=== PATIENT | male | born 1955 | race Caucasian/White ===

== ENCOUNTER 2021-03-16 06:26 | Emergency (ER) | payer SELFPAY ==
--- OUTSIDE RECORDS SUMMARY | 2021-03-16 06:28 | XMS REPORT | Continuity of Care Document ---
:1955 Author Organization [facility] t Address [address] [place] [address] Care Team Providers Name Role Phone SAMUEL Attending Clinician Unavailable Problems Condition Condition Condition Status Onset Resolution Last Treating Co mments Source Name Details Category Date Date Treatment Clinician Date Essential Essential Problem Active Uni vers hypertensi hypertensi HL7.CCDAR2 ity of on on [place] [facility] CAD CAD Problem Active Univers (coronary (coronary HL7.CCDAR2 ity of artery artery [place] disease) disease) Physic i ans Hyperlipid Hyperlipid Problem Active U nivers emia, emia, HL7.CCDAR2 it[place] hyperlipid hyperlipid an s emia type emia type History of History of Problem Resolve Univers Heart Heart HL7.CCDAR2 d ity of disease disease [place] [facility] Allergies, Adverse Reactions, Alerts This patient has no known allergies or adverse reactions. Social History Smoking Status Start Date Stop Date Source Current every day smoker [facility] [place] [facility] Medications Ordered Filled Start Stop Current Ordering Indication Dosage Frequency Signature Comments Components Source Medication Medication Date Date Medication? Clinician (SIG) Name Name Simvastatin Simvastatin 2017-07 Yes ONOFRE LEO TAKE 1 Univers 20 MG Oral 20 MG Oral 1-07 D.O. TABLET BY ity of Tablet Tablet 00:00: MOUTH [place] 00 DAILY Physici ans Aspirin 81 Aspirin 81 Yes Uni vers MG TABS MG TABS ity of [place] [facility] ans Carvedilol Carvedilol Yes ONOFRE LEO Q0.5D TAKE 1 Univers 12.5 MG 12.5 MG D.O. TABLET ity of Oral Tablet Oral Tablet TWICE [place] DAILY WITH Physici MEALS. ans Plavix 75 Plavix 75 Yes TAKE 1 Uni vers MG Oral MG Oral TABLET BY ity of Tablet Tablet MOUTH [place] DAILY Physici ans Isosorbide Isosorbide Yes TAKE 1 U nivers Mononitrate Mononitrate TABLET BY ity of ER 60 MG ER 60 MG MOUTH [place] Oral Tablet Oral Tablet EVERY DAY Physici Extended Extended ans Release 24 Release 24 Hour Hour Lisinopril Lisinopril Yes 2 QD TAKE 2 U nivers 20 MG Oral 20 MG Oral TABLET i ty of Tablet Tablet DAILY [place] [facility] ans Nitroglycer Nitroglycer Yes U nivers in 0.4 MG in 0.4 MG ity o f Sublingual Sublingual [place] as Tablet Tablet Physici Sublingual Sublingual ans Vital Signs Vital Name Observation Time Observation Value Comments Source BP Systolic 2018-05-18 168 mm[Hg] Location: [facility] 15:46:00 Position: [place] [facility] S[facility] BP Diastolic 2018-05-18 79 mm[Hg] Location: [facility] 15:46:00 Position: [place] [facility] Weight 2018-05-18 137.125 [lb_av] [facility] o f 15:46:00 [place] [facility] Heart Rate 2018-05-18 64 /min [facility] 15:46:00 [place] [facility] Respiration Rate 2018-05-18 16 /min [facility] 15:46:00 [place] [facility] Procedures This patient has no known procedures. Encounters Start End Encounter Admission Attending Care Care Encounter Source Date/Time Date/Time Type Type Clinicians Facility Department ID 2019-10-02 Outpatient [facility] [id number] 09:24:10 2019-07-20 Inpatient [facility] [id number] 21:22:00 2018-05-18 2018-05-18 XIMENA Agrawal [id number] [facility] 15:00:00 15:00:00 mandy; EDELMIRA BAKER [facility], M.D. Specialty [facility] Results This patient has no known results.
--- NOTE | 2021-03-16 09:20 | RAD REPORT ---
EXAM DESCRIPTION: US - Lower Extremity Arterial Bilat - 03/16/2021 8:49 am CLINICAL HISTORY: Leg pain COMPARISON: None FINDINGS: Right: Occlusion of the right mid superficial femoral artery. The distal SFA is stenotic a s well. All of the vessels in the left lower extremity demonstrate monophasic flow. Hard calcified pl aque noted throughout. Left: Occlusion of the proximal and mid SFA. There is monophasic flow throughout the left lower extre mity. Calcified plaque is present throughout. IMPRESSION: Short-segment right mid SFA occlusion and distal SFA stenosis. Monophasic flow throughou t the right lower extremity vessels. . Long segment occlusion of the left proximal and mid SFA. Monophasic flow throughout the left lower ex tremity vessels.
--- NOTE | 2021-03-16 15:31 | EDPHYS ---
Physician Documentation [facility] Name: Jeffy William Age: 65 yrs Sex: Male : 1955 Arrival Date: 03/16/2021 Time: 06:30 Bed 2 Private MD: ED Physician Moreno Basilio HPI: 03/16 07:40 This 65 yrs old Male presents to ER via Ambulatory with complaints of Toe sp3 Pain, Toe Swelling. 07:40 65-year-old male with a history of hypertension, hyperlipidemia, and lower extremity sp3 arterial bypass surgery over 3 years ago who now presents with left first and second digit toe pain for approximately 1 month. Patient states that the pain comes and goes and his toes feel cold and occasionally turn purple. Subsequent to cleaning his toenails, he states that his pain levels have improved and he think it may have been infected in the past. Patient's ability to walk has not changed. Patient is not a diabetic. Patient reports no injury, new or old paresthesias, weakness, change in proprioception, or any other neurological manifestations. Patient's daughter is new to the social situation and is now trying to take over patient's care. He has not had a primary care physician for over 1 year and therefore has not been taking his medications which include aspirin and Plavix. Patient reports that he stopped taking his aspirin because he "bleeds too much" when he takes it like when he bumps his elbow or has a bruise. Patient reports no GI bleeding, melena, dark stools, dee dee blood, lightheadedness, near-syncope, syncope, chest pain, shortness of breath, headache, fever, URI symptoms, or any other review of systems at this time. Patient states that he is getting his Medicaid sorted out and plans on getting back with his primary care physician.. Historical: - Allergies: 07:09 No Known Allergies; aa5 - PMHx: 07:09 Hypertensive disorder; Hypercholesterolemia; Myocardial infarction; aa5 - PSHx: 07:09 "tube from heart to help circulation to legs"; aa5 - Immunization history:: Client reports having NOT received the Covid vaccine. - Social history:: Smoking status: Patient reports the use of cigarette tobacco products, smokes one-half pack cigarettes per day. ROS: 07:43 Constitutional: Negative for fever, chills, and weight loss, Respiratory: Negative for sp3 shortness of breath, cough, wheezing, and pleuritic chest pain, Abdomen/GI: Negative for abdominal pain, nausea, vomiting, diarrhea, and constipation, Back: Negative for injury and pain, Skin: Negative for injury, rash, and discoloration, Neuro: Negative for headache, weakness, numbness, tingling, and seizure. 08:05 All other systems are negative. sp3 Exam: 07:43 Constitutional: This is a well developed, well nourished patient who is awake, alert, sp3 and in no acute distress. Head/Face: Normocephalic, atraumatic. Eyes: Pupils equal round and reactive to light, extra-ocular motions intact. Lids and lashes normal. Conjunctiva and sclera are non-icteric and not injected. Cornea within normal limits. Periorbital areas with no swelling, redness, or edema. ENT: Nares patent. No nasal discharge, no septal abnormalities noted. External auditory canals are clear. Oropharynx with no redness, swelling, or masses, exudates, or evidence of obstruction, uvula midline. Mucous membranes moist. Neck: Trachea midline, no thyromegaly or masses palpated, and no cervical lymphadenopathy. Supple, full range of motion without nuchal rigidity, or vertebral point tenderness. No Meningismus. Chest/axilla: Normal chest wall appearance and motion. Nontender with no deformity. No lesions are appreciated. Respiratory: Lungs have equal breath sounds bilaterally, clear to auscultation and percussion. No rales, rhonchi or wheezes noted. No increased work of breathing, no retractions or nasal flaring. Abdomen/GI: Soft, non-tender, with normal bowel sounds. No distension or tympany. No guarding or rebound. No evidence of tenderness throughout. Back: No spinal tenderness. No costovertebral tenderness. Full range of motion. Skin: Warm, dry with normal turgor. Normal color with no rashes, no lesions, and no evidence of cellulitis. Neuro: Awake and alert, GCS 15, oriented to person, place, time, and situation. Cranial nerves II-XII grossly intact. Motor strength 5/5 in all extremities. Sensory grossly intact. Cerebellar exam normal. Normal gait. Psych: Awake, alert, with orientation to person, place and time. Behavior, mood, and affect are within normal limits. 07:43 Cardiovascular: Exam negative for acute changes, bradycardia, edema, JVD, pulse deficit, tachycardia, Heart sounds: Patient has cold extremities bilaterally but does have a faint dorsalis pedis pulse. Capillary refill is present bilaterally, although nail hygiene is not optimal. Patient reports normal sensation bilaterally.. MDM: 07:20 Patient medically screened. sp3 07:44 Data reviewed: vital signs, nurses notes, radiologic studies. ED course: At this time, sp3 patient's symptoms and conditions are likely chronic in nature. There is no acute emergency at this time. We will obtain ultrasounds arterial bilateral lower extremities and disposition from there. At this time I have clinically ruled out acute coronary syndrome, thoracic aortic aneurysm, AAA, PE, or any other critical emergency at this time pending ultrasound results.. 12:36 ED course: Had a right SFA occlusion but patient could not tolerate being in the ED due sp3 to his personal time constraints, and so left without telling any staff. Multiple attempts were made to locate patient but patient was not found. Prior to ultrasound results, patient was told that he likely has vascular compromise arterially based on exam. Patient unfortunately left.. 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 There is no acute emergency at this time. We will obtain ultrasounds arterial bilateral lower extremities and discharge patient from there on Bactrim for 3 days for possible nailbed infection. At this time I have clinically ruled out acute coronary syndrome, thoracic aortic aneurysm, AAA, PE, or any other critical emergency at this time.. sp3
--- NOTE | 2021-03-16 15:31 | ER ---
Nurse's Notes 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 aa5 Coronavirus screen: At this time, the client does not indicate any symptoms associated with coronavirus-19. Ebola Screen: Patient negative for fever greater than or equal to 101.5 degrees Fahrenheit, and additional compatible Ebola Virus Disease symptoms. Initial Sepsis Screen: Does the patient meet any 2 criteria? No. Patient's initial sepsis screen is negative. Does the patient have a suspected source of infection? No. Patient's initial sepsis screen is negative. Risk Assessment: Do you want to hurt yourself or someone else? Patient reports no desire to harm self or others. Onset of symptoms was February 2021. 07:08 Method Of Arrival: Ambulatory aa5 07:08 Acuity: GINA 3 aa5 Historical: - Allergies: 07:09 No Known Allergies; aa5 - PMHx: 07:09 Hypertensive disorder; Hypercholesterolemia; Myocardial infarction; aa5 - PSHx: 07:09 "tube from heart to help circulation to legs"; aa5 - Immunization history:: Client reports having NOT received the Covid vaccine. - Social history:: Smoking status: Patient reports the use of cigarette tobacco products, smokes one-half pack cigarettes per day. Assessment: 07:45 General: Appears in no apparent distress. Behavior is calm, cooperative. Neuro: Level iw of Consciousness is awake, alert, obeys commands. ED Course: 06:30 Patient arrived in ED. bp1 07:08 Arm band placed on. aa5 07:09 Triage completed. aa5 07:20 Moreno Basilio MD is Attending Physician. sp3 07:45 Nikkie Zarate, RN is Primary Nurse. iw 15:42 Lower Extremity Arterial Bilat US In Process Unspecified. EDMS Administered Medications: No medications were administered Outcome: 12:50 Patient left the ED. iw Signatures: Dispatcher [employer] EDMS Nikkie Zarate, RN RN iw Maeve Roper, RN RN aa5 Yolie Hancock Setul, MD MD sp3
== END 2021-03-16 12:50 | disposition left against medical advice (07) ==
LOC: ER 06:26
DX: T82.31 Breakdown (mechanical) of other vascular grafts (principal); I10 Essential (primary) hypertension; I25.2 Old myocardial infarction; F17.210 Nicotine dependence, cigarettes, uncomplicated
CPT/HCPCS: 93925; 99282

== ENCOUNTER 2021-04-14 23:45 | Emergency (ER) | payer SELFPAY ==
[2021-04-15 00:37] LABS: Absolute Lymphocytes (CBC) 1.1 K/uL (0.7-4.9); Basophils % 0.6 % (0-1.3); Lymphocytes % 13.3 % (15.3-44.8); MPV 7.6 fL (7.6-11.3); RBC Red Blood Cell Count 4.25 M/uL (4.33-5.43)
[2021-04-15 00:51] LABS: ALT/SGPT 93 U/L (12-78); AST/SGOT 73 U/L (15-37); Albumin 2.9 g/dL (3.4-5.0); Alkaline Phosphatase 122 U/L (45-117); BUN Blood Urea Nitrogen 23 mg/dL (7-18); Bicarbonate 26 mmol/L (21-32); Bilirubin Direct 0.1 mg/dL (0-0.2); Bilirubin Total 0.3 mg/dL (0.2-1.0); CKMB Creatine Kinase MB 2.5 ng/mL (1.0-3.6); Creatine Phosphokinase 75 U/L (39-308); Glucose Level 120 mg/dL (74-106); Lipase 108 U/L (73-393); Magnesium 2.1 mg/dL (1.8-2.4); NT PRO-BNP 1144 pg/mL (<125); Potassium 4.1 mmol/L (3.5-5.1); Protein, Total 7.5 g/dL (6.4-8.2); Sodium Level 136 mmol/L (136-145); Troponin (Emerg Dept Use Only) < 0.02 ng/mL (0.0-0.045)
[2021-04-15] MEDS ORDERED: LEVALBUTEROL 1.25 MG/3 ML NEB ONE (01:12)
[2021-04-15] MEDS ORDERED: IPRATROPIUM BROM 0.5MG/2.5ML ONE (01:12)
[2021-04-15] MEDS ORDERED: levoFLOXacin 500 MG TAB ONE (01:22)
[2021-04-15] MEDS ORDERED: METHYLPREDNISOLONE 125 MG INJ ONE (01:22)
--- NOTE | 2021-04-15 02:26 | EDPHYS ---
Physician Documentation [facility] Name: Jeffy William Age: 65 yrs Sex: Male : 1955 Arrival Date: 04/14/2021 Time: 23:49 Bed 30 Private MD: ED Physician Mohsen Evans HPI: 04/15 00:37 This 65 yrs old Male presents to ER via Ambulatory with complaints of pamela Shortness Of Breath, Anxiety, Doesn't Feel Right, TOES TURNING PURPLE. 00:37 The patient has shortness of breath at rest, with light activity. Onset: The pamela symptoms/episode began/occurred 3 day(s) ago. Duration: The symptoms are continuous, and are steadily getting worse. The patient's shortness of breath has no apparent modifying factors. Associated signs and symptoms: Pertinent positives: non-productive cough. Severity of symptoms: At their worst the symptoms were moderate in the emergency department the symptoms are unchanged. The patient has experienced similar episodes in the past, several times. Historical: - Allergies: 04/14 23:56 No Known Allergies; wg - PMHx: 23:56 Hypercholesterolemia; Hypertensive disorder; Myocardial infarction; Peripheral vascular wg disease; - Immunization history:: Adult Immunizations up to date. - Social history:: Smoking status: Patient reports the use of cigarette tobacco products, smokes one pack cigarettes per day. Patient uses alcohol, but reports only rare drinking. Patient/guardian denies using street drugs, IV drugs. - Family history:: not pertinent. ROS: 04/15 00:37 Constitutional: Negative for fever, chills, and weight loss, Eyes: Negative for injury, pamela pain, redness, and discharge, ENT: Negative for injury, pain, and discharge, Neck: Negative for injury, pain, and swelling, Cardiovascular: Negative for chest pain, palpitations, and edema, Abdomen/GI: Negative for abdominal pain, nausea, vomiting, diarrhea, and constipation, Back: Negative for injury and pain, : Negative for injury, bleeding, discharge, and swelling, MS/Extremity: Negative for injury and deformity, Skin: Negative for injury, rash, and discoloration, Neuro: Negative for headache, weakness, numbness, tingling, and seizure. Respiratory: Positive for cough, shortness of breath, at rest. Exam: 00:37 Constitutional: This is a well developed, well nourished patient who is awake, alert, pamela and in no acute distress. Head/Face: Normocephalic, atraumatic. Eyes: Pupils equal round and reactive to light, extra-ocular motions intact. Lids and lashes normal. Conjunctiva and sclera are non-icteric and not injected. Cornea within normal limits. Periorbital areas with no swelling, redness, or edema. ENT: Nares patent. No nasal discharge, no septal abnormalities noted. Tympanic membranes are normal and external auditory canals are clear. Oropharynx with no redness, swelling, or masses, exudates, or evidence of obstruction, uvula midline. Mucous membranes moist. Neck: Trachea midline, no thyromegaly or masses palpated, and no cervical lymphadenopathy. Supple, full range of motion without nuchal rigidity, or vertebral point tenderness. No Meningismus. Chest/axilla: Normal chest wall appearance and motion. Nontender with no deformity. No lesions are appreciated. Cardiovascular: Regular rate and rhythm with a normal S1 and S2. No gallops, murmurs, or rubs. Normal PMI, no JVD. No pulse deficits. Abdomen/GI: Soft, non-tender, with normal bowel sounds. No distension or tympany. No guarding or rebound. No evidence of tenderness throughout. Back: No spinal tenderness. No costovertebral tenderness. Full range of motion. Male : Normal genitalia with no discharge or lesions. Skin: Warm, dry with normal turgor. Normal color with no rashes, no lesions, and no evidence of cellulitis. MS/ Extremity: Pulses equal, no cyanosis. Neurovascular intact. Full, normal range of motion. Neuro: Awake and alert, GCS 15, oriented to person, place, time, and situation. Cranial nerves II-XII grossly intact. Motor strength 5/5 in all extremities. Sensory grossly intact. Cerebellar exam normal. Normal gait. Psych: Awake, alert, with orientation to person, place and time. Behavior, mood, and affect are within normal limits. 00:37 Respiratory: mild respiratory distress is noted, Respirations: no acute changes, Breath sounds: bronchial sounds, decreased breath sounds, that are mild, rhonchi, that are mild, are scattered, Respiratory rate: 17 00:43 ECG was reviewed by the Attending Physician. pamela 00:43 Musculoskeletal/extremity: DVT Exam: No signs of deep vein thrombosis. no pain, no swelling, no tenderness, negative Homans' sign noted on exam, no appreciated bluish discoloration, no erythema, no increased warmth. Vital Signs: 04/14 23:52 BP 155 / 106; Pulse 108; Resp 20; Temp 98.7; Pulse Ox 99% on R/A; Weight 58.97 kg; wg Height 5 ft. 10 in. (177.80 cm); Pain 0/10; 04/15 00:26 BP 156 / 96 RA Sitting (auto/reg); Pulse 95; Resp 17 S; Pulse Ox 97% on R/A; Pain 0/10; sj1 02:19 BP 121 / 70 RA Sitting (auto/reg); Pulse 89; Resp 19 S; Pulse Ox 93% on R/A; Pain 0/10; sj1 05:07 BP 126 / 90 RA Sitting (auto/reg); Pulse 153; Resp 20; Temp 98.8(TE); Pulse Ox 98% on sj1 R/A; Pain 0/10; 05:35 BP 142 / 82 LA (auto/reg); Pulse 82; Resp 20 S; Pulse Ox 94% on R/A; Pain 0/10; sj1 05:54 BP 132 / 86; Pulse 89; Resp 20 S; Temp 98.8(TE); Pulse Ox 98% on R/A; Pain 0/10; sj1 04/14 23:52 Body Mass Index 18.65 (58.97 kg, 177.80 cm) wg Max Coma Score: 03:45 Eye Response: spontaneous(4). Verbal Response: oriented(5). Motor Response: obeys sj1 commands(6). Total: 15. MDM: 00:29 Patient medically screened. pamela 00:40 Differential diagnosis: Anxiety Reaction asthma, Bronchitis CHF exacerbation, Chronic pamela Obstructive Pulmonary Disease pneumonia, pulmonary edema, reactive airway disease. Antibiotic administration: Not indicated. The patient's Wells Deep Vein Thrombosis Score was calculated as follows: Total Score: 0-2 Pts- Low Risk. The patient's pulmonary embolism risk score was calculated as follows: Total Score: 0-2 points. This patient was found to be at low risk for a pulmonary embolism by using the Well's assessment criteria. Immunization status: Influenza vaccine: Data reviewed: vital signs, nurses notes, lab test result(s), EKG, radiologic studies, plain films. Data interpreted: periodicals clerk: rate is 95 beats/min, rhythm is regular, Pulse oximetry: on room air is 97 %. Test interpretation: by ED physician or midlevel provider: ECG, plain radiologic studies. Counseling: I had a detailed discussion with the patient and/or guardian regarding: the historical points, exam findings, and any diagnostic results supporting the discharge/admit diagnosis, the presence of at least one elevated blood pressure reading (>120/80) during this emergency department visit, lab results, radiology results. 04/14 23:59 Order name: BMP wg 04/14 23:59 Order name: CBC with Diff wg 04/14 23:59 Order name: CPK wg 04/14 23:59 Order name: Ckmb; Complete Time: 01:32 wg 04/14 23:59 Order name: D-Dimer; Complete Time: 00:48 wg 04/14 23:59 Order name: Hepatic Function; Complete Time: 01:32 wg 04/14 23:59 Order name: Lipase; Complete Time: 01:32 wg 04/14 23:59 Order name: Magnesium; Complete Time: 01:32 wg 04/14 23:59 Order name: NT PRO-BNP; Complete Time: 01:32 wg 04/14 23:59 Order name: PT-INR; Complete Time: 00:48 wg 04/14 23:59 Order name: Ptt, Activated; Complete Time: 00:48 wg 04/14 23:59 Order name: Troponin (emerg Dept Use Only); Complete Time: 01:32 wg 04/15 00:00 Order name: Basic Metabolic Panel; Complete Time: 01:32 EDMS 04/15 00:00 Order name: CBC with Automated Diff; Complete Time: 01:32 EDMS 04/15 00:00 Order name: Creatine Phosphokinase; Complete Time: 01:32 EDMS 04/15 00:36 Order name: XRAY Chest (1 view) pamela 04/15 00:49 Order name: CT Chest For PE Angio pamela 04/15 01:03 Order name: Extrem Venous W Compression Ishmael US em 04/15 01:54 Order name: SARS-COV-2 RT PCR; Complete Time: 02:04 EDMS 04/14 23:59 Order name: EKG; Complete Time: 00:01 wg 04/14 23:59 Order name: Cardiac monitoring; Complete Time: 00:18 wg 04/14 23:59 Order name: EKG - Nurse/Tech; Complete Time: 00:18 wg 04/14 23:59 Order name: IV Saline Lock; Complete Time: 00:18 wg 04/14 23:59 Order name: Labs collected and sent; Complete Time: 00:18 wg 04/14 23:59 Order name: O2 Per Protocol; Complete Time: 00:18 wg 04/14 23:59 Order name: O2 Sat Monitoring; Complete Time: 00:18 wg EC:43 Rate is 94 beats/min. Rhythm is regular. QRS Douglas is Normal. MI interval is normal. QRS pamela interval is normal. QT interval is normal. No Q waves. T waves are Normal. No ST changes noted. Clinical impression: NSR w/ Non-specific ST/T Changes and No evidence of ischemia. Interpreted by me. Reviewed by me. Administered Medications: 00:49 Drug: Xopenex (levalbuterol) 2.5 mg Route: Inhalation; sj1 00:49 Drug: AtroVENT (ipratropium) Aerosol 0.5 mg Route: Inhalation; sj1 00:57 Drug: SOLU-Medrol (methylPrednisoLONE) 125 mg Route: IVP; Site: left antecubital; sj1 01:11 Follow up: Response: No adverse reaction sj1 00:57 Drug: LevOfloxacin 500 mg Route: PO; sj1 01:11 Follow up: Response: No adverse reaction sj1 02:37 Drug: Lasix (furosemide) 20 mg Route: IVP; Site: left antecubital; sj1 03:46 Follow up: Response: No adverse reaction sj1 05:44 Drug: Lopressor (metoprolol) 2.5 mg Route: IVP; Site: right forearm; sj1 05:50 Follow up: Response: No adverse reaction; Cardiac rhythm changed sj1 05:45 Drug: Heparin ([place]-Bolus No thrombolytic) - HEParin 60 units/kg {Co-Signature: cc4 sj1 (Sharonda Atkinson RN).} Route: IVP; Site: right forearm; 05:53 Follow up: Response: No adverse reaction sj1 05:45 Drug: Heparin ([place] Drip) 12 units/kg/hr - (HEParin 41350 units, D5W 500 ml) sj1 {Co-Signature: cc4 (Sharonda Atkinson RN).} Route: IV; Rate: calculated rate; Site: right forearm; 05:45 Drug: Lopressor (metoprolol TARTRATE) 50 mg Route: PO; sj1 05:50 Follow up: Response: No adverse reaction sj1 05:52 Not Given (Other Intervention Used): Lopressor (metoprolol) 5 mg IVP once; Hold for SBP sj1 <100 or HR <60. Disposition Summary: 04/15/21 02:43 Transfer Ordered Transfer Location: [facility] pamela Reason: Higher level of care pamela Condition: Fair(04/15/21 02:43) pamela Problem: new(04/15/21 02:43) pamela Symptoms: have improved(04/15/21 02:43) pamela Accepting Physician: TO Bakari MANNING(04/15/21 06:27) sj1 Diagnosis - Dyspnea - pulmonary and lymphatic metastases(04/15/21 02:43) pamela - Pericardial effusion (noninflammatory) - Large pamela - Pleural effusion in other conditions classified elsewhere pamela - Paroxysmal atrial fibrillation pamela Forms: - Medication Reconciliation Form pamela - SBAR form pamela Signatures: Dispatcher [employer] EDMS Mohsen Evans MD MD cha Gamba, Liam, RN wg Johnson, Sade, RN RN sj1 Sharonda Atkinson RN cc4 Corrections: (The following items were deleted from the chart) 00:51 00:37 CORONAVIRUS+ ordered. EDTX EDMS 02:40 02:25 Observation pamela pamela 02:40 02:25 Rigo Chou pamela pamela 02:40 02:25 Telemetry/MedSurg (observation) pamela pamela 02:40 02:25 Stable pamela pamela 02:40 02:25 new pamela pamela 02:40 02:25 have improved pamela pamela 02:40 02:25 Standard pamela pamela 02:40 02:25 pamela pamela 02:40 02:25 Dyspnea pamela pamela 02:40 02:25 Cardiomegaly pamela pamela 02:40 02:29 Systolic (congestive) heart failure pamela pamela 02:40 02:29 Essential (primary) hypertension pamela pamela 02:40 02:29 Tobacco abuse counseling pamela pamela 02:40 02:29 Tobacco use pamela pamela 03:17 02:43 TO [facility] pamela pamela 05:15 03:17 TO Bakari MANNING pamela pamela 06:27 05:15 TO CARDIO, Bakari pamela sj1
--- NOTE | 2021-04-15 02:26 | ER ---
Nurse's Notes [facility] Name: Jeffy William Age: 65 yrs Sex: Male : 1955 Arrival Date: 04/14/2021 Time: 23:49 Bed 30 Private MD: Diagnosis: Dyspnea-pulmonary and lymphatic metastases;Pericardial effusion (noninflammatory)-Large;Pleural effusion in other conditions classified elsewhere;Paroxysmal atrial fibrillation Presentation: 04/14 23:52 Chief complaint: Patient states: Pt states he has had increased SOB since last night. wg Pt report non-productive cough and states it's from smoking. Denies CP, N/V/D. Pt states he believes his SOB is related to high anxiety due to having to move and other stressors. Pt states his toe on his right foot has been purple for 20 days and states he has PVD. Pt denies any other complaints. Coronavirus screen: Vaccine status: Patient reports being unvaccinated. At this time, the client does not indicate any symptoms associated with coronavirus-19. Ebola Screen: Patient negative for fever greater than or equal to 101.5 degrees Fahrenheit, and additional compatible Ebola Virus Disease symptoms Patient denies exposure to infectious person. Patient denies travel to an Ebola-affected area in the 21 days before illness onset. Initial Sepsis Screen: Does the patient meet any 2 criteria? No. Patient's initial sepsis screen is negative. Does the patient have a suspected source of infection? No. Patient's initial sepsis screen is negative. Risk Assessment: Do you want to hurt yourself or someone else? Patient reports no desire to harm self or others. Onset of symptoms was April 13, 2021 at 20:00. 23:52 Method Of Arrival: Ambulatory wg 23:52 Acuity: GINA 3 wg Triage Assessment: 23:56 General: Appears slender, unkempt, Behavior is cooperative, appropriate for age, wg anxious. Pain: Denies pain. Respiratory: Reports shortness of breath cough that is Onset: The symptoms/episode began/occurred yesterday, the patient has mild shortness of breath. Historical: - Allergies: 23:56 No Known Allergies; wg - PMHx: 23:56 Hypercholesterolemia; Hypertensive disorder; Myocardial infarction; Peripheral vascular wg disease; - Immunization history:: Adult Immunizations up to date. - Social history:: Smoking status: Patient reports the use of cigarette tobacco products, smokes one pack cigarettes per day. Patient uses alcohol, but reports only rare drinking. Patient/guardian denies using street drugs, IV drugs. - Family history:: not pertinent. Screenin/05 00:26 Abuse screen: Denies threats or abuse. Denies injuries from another. Nutritional sj1 screening: No deficits noted. Tuberculosis screening: No symptoms or risk factors identified. Fall Risk None identified. Assessment: 00:26 General: Appears in no apparent distress. comfortable, Behavior is calm, cooperative, sj1 appropriate for age. Pain: Denies pain. Neuro: No deficits noted. Cardiovascular: No deficits noted. Rhythm is sinus rhythm Chest pain is denied. Respiratory: Reports shortness of breath on exertion cough that is dry, Airway is patent Respiratory effort is even, unlabored, Respiratory pattern is regular, symmetrical. GI: No deficits noted. : No deficits noted. EENT: No deficits noted. Derm: No deficits noted. Derm: No deficits noted. Musculoskeletal: No deficits noted. 04:07 Cardiovascular: JVD is present. sj1 04:07 Reassessment: Report called to Sindy BABB at [facility]ICU. sj1 05:13 Reassessment: HR increased to 160's. Tele shows afib. EKG repeated and shown to MD. No sj1 additional orders received at this time. 05:35 Respiratory: Breath sounds are diminished in left. sj1 05:49 Reassessment: Patient appears in no apparent distress at this time. No changes from sj1 previously documented assessment. Patient denies pain at this time. 06:03 Reassessment: [facility] unit 40 arrived to transport pt to [facility] CVICU. VSS. sj1 AOX4. Belongings sent with patient. Vital Signs: 04/14 23:52 BP 155 / 106; Pulse 108; Resp 20; Temp 98.7; Pulse Ox 99% on R/A; Weight 58.97 kg; wg Height 5 ft. 10 in. (177.80 cm); Pain 0/10; 04/15 00:26 BP 156 / 96 RA Sitting (auto/reg); Pulse 95; Resp 17 S; Pulse Ox 97% on R/A; Pain 0/10; sj1 02:19 BP 121 / 70 RA Sitting (auto/reg); Pulse 89; Resp 19 S; Pulse Ox 93% on R/A; Pain 0/10; sj1 05:07 BP 126 / 90 RA Sitting (auto/reg); Pulse 153; Resp 20; Temp 98.8(TE); Pulse Ox 98% on sj1 R/A; Pain 0/10; 05:35 BP 142 / 82 LA (auto/reg); Pulse 82; Resp 20 S; Pulse Ox 94% on R/A; Pain 0/10; sj1 05:54 BP 132 / 86; Pulse 89; Resp 20 S; Temp 98.8(TE); Pulse Ox 98% on R/A; Pain 0/10; sj1 04/14 23:52 Body Mass Index 18.65 (58.97 kg, 177.80 cm) wg Vitals: 00:26 Cardiac Rhythm Assessment Sinus rhythm. sj1 Talbott Coma Score: 03:45 Eye Response: spontaneous(4). Verbal Response: oriented(5). Motor Response: obeys sj1 commands(6). Total: 15. ED Course: 04/14 23:49 Patient arrived in ED. cf2 23:56 Triage completed. 23:56 Arm band placed on left wrist. 04/15 00:17 BMP Sent. sj1 00:17 CBC with Automated Diff Sent. sj1 00:17 Creatine Phosphokinase Sent. sj1 00:17 Basic Metabolic Panel Sent. sj1 00:17 CBC with Diff Sent. sj1 00:17 CPK Sent. sj1 00:26 Patient has correct armband on for positive identification. Bed in low position. Call sj1 light in reach. Side rails up X 1. 00:26 No provider procedures requiring assistance completed. Inserted saline lock: 20 gauge sj1 in left antecubital area, using aseptic technique. Blood collected. 00:28 Mohsen Evans MD is Attending Physician. pamela 00:44 XRAY Chest (1 view) Sent. sj1 01:12 CT Chest For PE Angio Sent. sj1 01:16 XRAY Chest (1 view) In Process Unspecified. EDMS 01:35 CT Chest For PE Angio In Process Unspecified. EDMS 01:38 Extrem Venous W Compression Ishmael US Sent. sj1 02:04 Extrem Venous W Compression Ishmael US In Process Unspecified. EDMS 02:25 Rigo Chou MD is Hospitalizing Provider. pamela 02:45 Called [facility] to initiate transfer. tt3 02:54 Connected with Ara at [facility]. Initiated transfer. Was informed they were at capacity at tt3 all campuses so they would have to decline the transfer request. 03:05 Initiated transfer at [facility] with Elvira. Was informed they were at capacity and tt3 would have to decline the transfer request. 03:12 Initiated transfer at [facility] with Ryann Wright. Stated she would do a tt3 capacity check and call back. 03:18 Ryann Wright called back with their physician to consult with Dr. Evans regarding tt3 the transfer request. 03:23 Ryann Wright gave admin approval. The accepting physician is Dr. Gregory. The pt is tt3 going to [facility]ICU as a direct admit. Nurse to call report to . Face sheet and MOT to be faxed to per Ryann's request. 05:48 Inserted saline lock: 18 gauge in right forearm, using aseptic technique. sj1 06:13 Patient transferred, IV remains in place. intact, No redness/swelling at site. sj1 Administered Medications: 00:49 Drug: Xopenex (levalbuterol) 2.5 mg Route: Inhalation; sj1 00:49 Drug: AtroVENT (ipratropium) Aerosol 0.5 mg Route: Inhalation; sj1 00:57 Drug: SOLU-Medrol (methylPrednisoLONE) 125 mg Route: IVP; Site: left antecubital; sj1 01:11 Follow up: Response: No adverse reaction sj1 00:57 Drug: LevOfloxacin 500 mg Route: PO; sj1 01:11 Follow up: Response: No adverse reaction sj1 02:37 Drug: Lasix (furosemide) 20 mg Route: IVP; Site: left antecubital; sj1 03:46 Follow up: Response: No adverse reaction sj1 05:44 Drug: Lopressor (metoprolol) 2.5 mg Route: IVP; Site: right forearm; sj1 05:50 Follow up: Response: No adverse reaction; Cardiac rhythm changed sj1 05:45 Drug: Heparin ([place]-Bolus No thrombolytic) - HEParin 60 units/kg {Co-Signature: cc4 sj1 (Sharonda Demetrio RN).} Route: IVP; Site: right forearm; 05:53 Follow up: Response: No adverse reaction sj1 05:45 Drug: Heparin ([place] Drip) 12 units/kg/hr - (HEParin 20041 units, D5W 500 ml) sj1 {Co-Signature: cc4 (Sharonda Atkinson RN).} Route: IV; Rate: calculated rate; Site: right forearm; 05:45 Drug: Lopressor (metoprolol TARTRATE) 50 mg Route: PO; sj1 05:50 Follow up: Response: No adverse reaction sj1 05:52 Not Given (Other Intervention Used): Lopressor (metoprolol) 5 mg IVP once; Hold for SBP sj1 <100 or HR <60. Output: 03:45 Urine: 500ml (Voided); Total: 500ml. sj1 04:11 Urine: 300ml (Voided); Total: 800ml. sj1 Outcome: 02:25 Decision to Hospitalize by Provider. [facility] 02:43 ER care complete, transfer ordered by . [facility] 06:12 Transferred by ground EMS to [facility], to other acute care facility: [place] [id number] CVICU. Transfer form completed. X-rays sent w/ patient. 06:12 Condition: stable 06:12 Instructed on the need for transfer. 06:27 Patient left the ED. sj1 Signatures: Dispatcher [employer] EDMohsen Kruse MD MD cha Frazier, Celesta cf2 Tico Peoples tt3 Kaushal Royal RN wg Johnson, Sade, RN RN sj1 Sharonda Atkinson RN cc4 Corrections: (The following items were deleted from the chart) 04/14 23:58 23:52 Chief complaint: Patient states: Pt states he has had increased SOB since last wg night. Pt report non-productive cough and states it's from smoking. Denies CP, N/V/D. Pt states he believes his SOB is related to high anxiety due to having to move and other stressors. Pt states his toe on his right foot has been purple for 20 days and states he has PAD. Pt denies any other complaints. wg 04/15 00:04 04/14 23:52 BP 148 / 96; Pulse 108bpm; Resp 20bpm; Pulse Ox 99% RA; Temp 98.7F; 58.97 wg kg; Height 5 ft. 10 in.; BMI: 18.6; Pain 0/10; wg 04/15 00:51 00:44 CORONAVIRUS+MR.LAB.FITO drawn and sent. sj1 EDMS 05:56 05:54 BP 132 / 86; Pulse 89bpm; Resp 20bpm; Spontaneous; Pulse Ox 98% RA; Pain 0/10; sj1sj1
[2021-04-15] MEDS ORDERED: FUROSEMIDE 20 MG/ 2ML VIAL ONE (03:00)
[2021-04-15] MEDS ORDERED: METOPROLOL TAR 50 MG TAB ONE (05:49)
[2021-04-15] MEDS ORDERED: HEPARIN 5000 UNIT/ML 1 ML VIAL ONE (05:49)
[2021-04-15] MEDS ORDERED: HEPARIN/D5W 25,000 UNIT/500 ML BAG IV ONE (05:50)
[2021-04-15] MEDS ORDERED: METOPROLOL TARTRATE 5 MG/5 ML INJ IV ONE (05:53)
[2021-04-15 06:39] VITALS: TEMP 98.8
[2021-04-15 06:42] VITALS: BP 132/86; O2SAT 98
--- NOTE | 2021-04-15 07:14 | RAD REPORT ---
EXAM DESCRIPTION: US - Extrem Venous W Compress Ishmael - 04/15/2021 2:09 am CLINICAL HISTORY: Swelling COMPARISON: None. TECHNIQUE: Real-time sonographic evaluation of the bilateral lower extremity deep venous systems was performed. FINDINGS: Normal compressibility, flow augmentation, phasic flow and spontaneous flow is identified in both the left and right lower extremity deep venous systems. No intraluminal filling defects seen. IMPRESSION: No DVT in either lower extremity.
--- NOTE | 2021-04-15 07:17 | RAD REPORT ---
EXAM DESCRIPTION: RAD - Chest Single View - 04/15/2021 1:16 am CLINICAL HISTORY: Cough;COPD COMPARISON: No comparisons FINDINGS: Lines: None. Lungs: No evidence of edema or pneumonia. Pleural: No significant pleural effusions or pneumothorax. Cardiac: Cardiomegaly Bones: No acute fractures. Other: IMPRESSION: No acute cardiopulmonary disease.
--- NOTE | 2021-04-15 11:17 | RAD REPORT ---
EXAM DESCRIPTION: CT - Chest For Pe Angio - 04/15/2021 6:40 am CLINICAL HISTORY: Dyspnea;PE TECHNIQUE: Axial computed tomographic angiography images of the chest with intravenous contrast. S agittal and coronal reformatted images were created and reviewed. This CT exam was performed using one or more of the following dose reduction techniques: automated exposure control, adjustment of t he mA and/or kV according to patient size, and/or use of iterative reconstruction technique. MIP reconstructed images were created and reviewed. COMPARISON: No relevant prior studies available. FINDINGS: Pulmonary arteries: No pulmonary arterial filling defects. Aorta: Mild to moderate atherosclerotic disease. The right brachiocephalic vein is attenuated. No thoracic aortic aneurysm. Lungs: Biapical pleural parenchymal scar. Minimal paraseptal emphysema. Multiple bilateral pulmon viviane nodules. An index left lower lobe nodule measures 10 mm (series 401 image 13). A few of the small er nodules in the upper lobes demonstrate central cavitation. Scattered bilateral subsegmental atel ectasis/pleural parenchymal scar. Minimal bibasilar consolidation. Minimal layering mucus/debris wi thin the left mainstem bronchus. Pleural space: Small right and trace left pleural effusions. No pneumothorax. Heart: The heart is mildly to moderately enlarged. Coronary artery calcification. Large pericardial effusion. No evidence of RV dysfunction. Mediastinum: Enlarged heterogeneous right supraclavicular, prevascular, right paratracheal, AP wind ow, subcarinal and right greater than left hilar lymph nodes. An index subcarinal conglomerate measur es 2.5 cm in short axis. Bones/joints: No acute fracture. No dislocation. Soft tissues: Right chest wall vascular graft. Lymph nodes: Prominent right axillary lymph nodes measuring up to 13 mm in short axis. IMPRESSION: 1. Constellation of findings concerning for pulmonary and lymphatic metastases. The ri ght brachiocephalic vein is partially effaced secondary to the lymphadenopathy. 2. Small right and trace left pleural effusions. Minimal adjacent bibasilar consolidation (atelecta sis and/or infiltrate). 3. Large pericardial effusion. 4. Other findings as above. Electronically signed by: Yani Dupree MD 04/15/2021 2:31 AM CDT Due to temporary technical issues with the PACS/Fluency reporting system, reports are being signed by the in house radiologists without review as a courtesy to insure prompt reporting. The interpreting radiologist is fully responsible for the content of the report.
--- NOTE | 2021-04-15 18:07 | EKG ---
Test Date: 2021-04-15 Test Time: 00:23:40 Weighbridge Operator: MEASUREMENT RESULTS: Intervals: Rate: 94 VT: 128 QRSD: 96 QT: 378 QTc: 472 [place]: P: 74 VT: 128 QRS: 57 T: 89 INTERPRETIVE STATEMENTS: Sinus rhythm with frequent premature ventricular complexes Possible Left atrial enlargement Possible Inferior infarct, age undetermined T wave abnormality, consider lateral ischemia Abnormal ECG No previous ECG available for comparison Electronically Signed On 04-15-21 18:05:41 CDT by Will Em
--- NOTE | 2021-04-16 16:47 | EKG ---
Test Date: 2021-04-15 Test Time: 05:09:10 Architectural Renderer: VANI MEASUREMENT RESULTS: Intervals: Rate: 147 [place]: QRSD: 88 QT: 302 QTc: 472 [place]: P: [place]: QRS: 82 T: 134 INTERPRETIVE STATEMENTS: Atrial flutter with variable AV block Septal infarct, age undetermined Cannot rule out Inferior infarct, age undetermined Abnormal ECG Compared to ECG 04/15/2021 00:23:40 Sinus rhythm no longer present Ventricular premature complex(es) no longer present T-wave abnormality no longer present Possible ischemia no longer present Myocardial infarct finding still present Electronically Signed On 04-16-21 16:43:10 CDT by Will Em
== END 2021-04-15 06:27 | disposition short-term general hospital (02) ==
LOC: ER 23:45
DX: I31.3 Pericardial effusion (noninflammatory) (principal); I48.0 Paroxysmal atrial fibrillation; C34.90 Malignant neoplasm of unspecified part of unspecified bronchus or lung; C77.9 Secondary and unspecified malignant neoplasm of lymph node, unspecified; J91.8 Pleural effusion in other conditions classified elsewhere; I73.9 Peripheral vascular disease, unspecified; I10 Essential (primary) hypertension; F17.210 Nicotine dependence, cigarettes, uncomplicated; Z20.822 Contact with and (suspected) exposure to COVID-19
CPT/HCPCS: 36415; 71045; 71275; 80048; 80076; 82550; 82553; 83690; 83735; 83880; 84484; 85025; 85379; 85610; 85730; 93005; 93970; 96374; 96375; 99285; J1644; J1940; J2930; Q9967; U0003

== ENCOUNTER 2021-04-22 23:01 | Emergency (ER) | payer SELFPAY ==
--- NOTE | 2021-04-23 00:56 | EDPHYS ---
Physician Documentation [facility] Name: Jeffy William Age: 65 yrs Sex: Male : 1955 Arrival Date: 04/22/2021 Time: 23:04 Bed 20 Private MD: ED Physician Mohsen Evans HPI: 04/23 00:45 This 65 yrs old Male presents to ER via Ambulatory with complaints of LUMP IN pamela NECK. 00:45 nodes in the supraclavicular are, spot o the lungs, recent pericardial effusion. Onset: pamela The symptoms/episode began/occurred 2 day(s) ago. Severity of symptoms: At their worst the symptoms were mild in the emergency department the symptoms are unchanged. The patient has not experienced similar symptoms in the past. Historical: - Allergies: 04/22 23:37 No Known Allergies; ss - Home Meds: 23:37 aspirin [Active]; ss - PMHx: 23:37 peripheral vascular disease; Myocardial infarction; Hypertensive disorder; ss Hypercholesterolemia; - PSHx: 23:37 "tube from heart to help circulation to legs"; ss - Immunization history:: Adult Immunizations not up to date, Client reports having NOT received the Covid vaccine. - Social history:: Smoking status: Patient reports the use of cigarette tobacco products, smokes one pack cigarettes per day. Patient uses street drugs, marijuana. ROS: 04/23 00:47 Constitutional: Negative for fever, chills, and weight loss, Eyes: Negative for injury, pamela pain, redness, and discharge, ENT: Negative for injury, pain, and discharge, Cardiovascular: Negative for chest pain, palpitations, and edema, Respiratory: Negative for shortness of breath, cough, wheezing, and pleuritic chest pain, Abdomen/GI: Negative for abdominal pain, nausea, vomiting, diarrhea, and constipation, Back: Negative for injury and pain, : Negative for injury, bleeding, discharge, and swelling, MS/Extremity: Negative for injury and deformity, Skin: Negative for injury, rash, and discoloration, Neuro: Negative for headache, weakness, numbness, tingling, and seizure, Psych: Negative for depression, anxiety, suicide ideation, homicidal ideation, and hallucinations, Allergy/Immunology: Negative for hives, rash, and allergies, Endocrine: Negative for neck swelling, polydipsia, polyuria, polyphagia, and marked weight changes, Hematologic/Lymphatic: Negative for swollen nodes, abnormal bleeding, and unusual bruising. Neck: Positive for swollen nodes, of the right supraclavicular area. Exam: 00:47 Constitutional: This is a well developed, well nourished patient who is awake, alert, pamela and in no acute distress. Head/Face: Normocephalic, atraumatic. Eyes: Pupils equal round and reactive to light, extra-ocular motions intact. Lids and lashes normal. Conjunctiva and sclera are non-icteric and not injected. Cornea within normal limits. Periorbital areas with no swelling, redness, or edema. ENT: Nares patent. No nasal discharge, no septal abnormalities noted. Tympanic membranes are normal and external auditory canals are clear. Oropharynx with no redness, swelling, or masses, exudates, or evidence of obstruction, uvula midline. Mucous membranes moist. Chest/axilla: Normal chest wall appearance and motion. Nontender with no deformity. No lesions are appreciated. Cardiovascular: Regular rate and rhythm with a normal S1 and S2. No gallops, murmurs, or rubs. Normal PMI, no JVD. No pulse deficits. Respiratory: Lungs have equal breath sounds bilaterally, clear to auscultation and percussion. No rales, rhonchi or wheezes noted. No increased work of breathing, no retractions or nasal flaring. Abdomen/GI: Soft, non-tender, with normal bowel sounds. No distension or tympany. No guarding or rebound. No evidence of tenderness throughout. Back: No spinal tenderness. No costovertebral tenderness. Full range of motion. Male : Normal genitalia with no discharge or lesions. Skin: Warm, dry with normal turgor. Normal color with no rashes, no lesions, and no evidence of cellulitis. MS/ Extremity: Pulses equal, no cyanosis. Neurovascular intact. Full, normal range of motion. Neuro: Awake and alert, GCS 15, oriented to person, place, time, and situation. Cranial nerves II-XII grossly intact. Motor strength 5/5 in all extremities. Sensory grossly intact. Cerebellar exam normal. Normal gait. Psych: Awake, alert, with orientation to person, place and time. Behavior, mood, and affect are within normal limits. 00:47 Constitutional: The patient appears in no acute distress. 00:47 Head/face: Exam is negative for 00:47 Neck: ROM/movement: is normal, no acute changes. 01:06 ECG was reviewed by the Attending Physician. [facility] Vital Signs: 04/22 23:33 BP 157 / 92; Pulse 92; Resp 18; Temp 98.8; Pulse Ox 98% on R/A; Weight 59.42 kg; Height ss 5 ft. 10 in. (177.80 cm); Pain 0/10; 23:33 Body Mass Index 18.80 (59.42 kg, 177.80 cm) ss MDM: 04/23 00:21 Patient medically screened. [facility] 00:48 Differential Diagnosis Bronchitis. Data reviewed: vital signs, nurses notes, radiologic pamela studies, plain films. Data interpreted: quality assurance monitor body: rate is 92 beats/min, rhythm is regular, Pulse oximetry: on room air is 98 %. Test interpretation: by ED physician or midlevel provider: plain radiologic studies. Counseling: I had a detailed discussion with the patient and/or guardian regarding: the historical points, exam findings, and any diagnostic results supporting the discharge/admit diagnosis, radiology results. 04/23 00:44 Order name: Chest Single View XRAY [facility] 04/23 01:06 Order name: EKG; Complete Time: 01:06 [facility] 04/23 01:06 Order name: EKG - Nurse/Tech [facility] EC: Rate is 82 beats/min. Rhythm is regular. QRS [place] is Normal. ID interval is normal. QRS pamela interval is normal. QT interval is normal. No Q waves. T waves are Normal. No ST changes noted. Clinical impression: Abnormal EKG without significant change and No evidence of ischemia. Interpreted by me. Reviewed by me. Administered Medications: No medications were administered Disposition Summary: 04/23/21 00:55 Discharge Ordered Location: Home pamela Problem: new pamela Symptoms: have improved pamela Condition: Stable pamela Diagnosis - Disseminated malignant neoplasm, unspecified - lung cancer, pulmonary and lymphatic pamela metastases - Tobacco abuse counseling pamela - Tobacco use pamela Followup: pamela - With: Private Physician - When: 2 - 3 days - Reason: Recheck today's complaints, Continuance of care, Re-evaluation by your physician Followup: pamela - With: Savita Anderson MD - When: 2 - 3 days - Reason: Recheck today's complaints, Re-evaluation by your physician Discharge Instructions: - Discharge Summary Sheet pamela - Health Risks of Smoking pamela - Lung Cancer pamela Forms: - Medication Reconciliation Form pamela - Thank You Letter pamela - Antibiotic Education pamela - Prescription Opioid Use pamela Signatures: Dispatcher [employer] Mohsen Flowers MD MD cha Smirch, Shelby RN RN ss
--- NOTE | 2021-04-23 00:56 | ER ---
Nurse's Notes [facility] Name: Jeffy William Age: 65 yrs Sex: Male : 1955 Arrival Date: 04/22/2021 Time: 23:04 Bed 20 Private MD: Diagnosis: Disseminated malignant neoplasm, unspecified-lung cancer, pulmonary and lymphatic metastases;Tobacco abuse counseling;Tobacco use Presentation: 04/22 23:33 Chief complaint: Patient states: swelling to right side of neck noticed 2 hours RELATIONSHIP ADVISOR. ss Coronavirus screen: Vaccine status: Patient reports being unvaccinated. The client reports previous COVID testing was negative. Date of collection: April 17, 2021. Ebola Screen: Patient negative for fever greater than or equal to 101.5 degrees Fahrenheit, and additional compatible Ebola Virus Disease symptoms Patient denies exposure to infectious person. Patient denies travel to an Ebola-affected area in the 21 days before illness onset. Initial Sepsis Screen: Does the patient meet any 2 criteria? No. Patient's initial sepsis screen is negative. Does the patient have a suspected source of infection? No. Patient's initial sepsis screen is negative. Risk Assessment: Do you want to hurt yourself or someone else? Patient reports no desire to harm self or others. Note Pt states swelling to right side of neck, noticed tonight. Denies pain, N, V, fever. Pt concerned and wanted to be seen. Onset of symptoms was April 22, 2021. 23:33 Method Of Arrival: Ambulatory ss 23:33 Acuity: GINA 3 ss Historical: - Allergies: 23:37 No Known Allergies; ss - Home Meds: 23:37 aspirin [Active]; ss - PMHx: 23:37 peripheral vascular disease; Myocardial infarction; Hypertensive disorder; ss Hypercholesterolemia; - PSHx: 23:37 "tube from heart to help circulation to legs"; ss - Immunization history:: Adult Immunizations not up to date, Client reports having NOT received the Covid vaccine. - Social history:: Smoking status: Patient reports the use of cigarette tobacco products, smokes one pack cigarettes per day. Patient uses street drugs, marijuana. Screenin:58 Abuse screen: Denies threats or abuse. Nutritional screening: No deficits noted. lh3 Tuberculosis screening: No symptoms or risk factors identified. Fall Risk None identified. Assessment: 23:58 General: Appears in no apparent distress. Behavior is calm, cooperative, appropriate [facility] for age. Pain: Denies pain. Cardiovascular: No deficits noted. Denies chest pain, Heart tones S1 S2 present Capillary refill < 3 seconds. Vital Signs: 23:33 BP 157 / 92; Pulse 92; Resp 18; Temp 98.8; Pulse Ox 98% on R/A; Weight 59.42 kg; Height ss 5 ft. 10 in. (177.80 cm); Pain 0/10; 23:33 Body Mass Index 18.80 (59.42 kg, 177.80 cm) Vitals: 23:58 Cardiac Rhythm Assessment Regular. [facility] ED Course: 23:04 Patient arrived in ED. [facility] 23:37 Triage completed. 23:58 Caroline Nieto, RN is Primary Nurse. [facility] 23:58 Patient has correct armband on for positive identification. Bed in low position. Call [facility] light in reach. Side rails up X 1. Side rails up X2. tannery worker on. Pulse ox on. NIBP on. Door closed. Warm blanket given. Verbal reassurance given. 23:58 No provider procedures requiring assistance completed. [facility] 04/23 00:20 Mohsen Evans MD is Attending Physician. [facility] 00:51 Savita Anderson MD is Referral Physician. [facility] 01:06 X-ray completed. Portable x-ray completed in exam room. 1 01:15 Chest Single View XRAY In Process Unspecified. [facility] 01:17 Arm band placed on right wrist. [facility] 01:17 Patient did not have IV access during this emergency room visit. [facility] Administered Medications: No medications were administered Outcome: 00:55 Discharge ordered by . [facility] 01:16 Discharged to home ambulatory. [facility] 01:16 Condition: stable 01:16 Discharge instructions given to patient, significant other, Instructed on discharge instructions, follow up and referral plans. Demonstrated understanding of instructions, follow-up care. 01:17 Patient left the ED. [facility] Signatures: Dispatcher [employer] EDMS Mohsen Evans MD MD cha Smirch, Shelby RN RN Fe Suarez md1 Caroline Nieto RN RN [facility] Bety Castellano
[2021-04-23 01:23] VITALS: BP 157/92; TEMP 98.8; O2SAT 98
--- NOTE | 2021-04-23 07:24 | RAD REPORT ---
EXAM DESCRIPTION: RAD - Chest Single View - 04/23/2021 1:15 am CLINICAL HISTORY: COUGH COMPARISON: Chest Single View dated 04/15/2021; Chest For Pe Angio dated 04/15/2021 FINDINGS: Lines: None. Lungs: No evidence of edema or pneumonia. Emphysema. Pleural: Small right pleural effusion. Cardiac: Mild cardiomegaly. Hilar and mediastinal adenopathy. Bones: No acute fractures. Other: Surgical changes overlying the left upper thorax . IMPRESSION: Small right pleural effusion. Mediastinal and hilar adenopathy better demonstrated on th e chest CT from 04/15/2021.
--- NOTE | 2021-04-23 16:37 | EKG ---
Test Date: 2021-04-22 Test Time: 23:52:34 Convenience Store Manager: CHELSEA MEASUREMENT RESULTS: Intervals: Rate: 82 TN: 132 QRSD: 92 QT: 410 QTc: 479 [place]: P: 72 TN: 132 QRS: 0 T: 91 INTERPRETIVE STATEMENTS: Normal sinus rhythm Possible Left atrial enlargement Possible Inferior infarct, age undetermined Abnormal ECG Compared to ECG 04/15/2021 05:09:10 Atrial flutter no longer present Myocardial infarct finding still present Electronically Signed On 04-23-21 16:35:39 CDT by Will Em
== END 2021-04-23 01:17 | disposition home or self-care (01) ==
LOC: ER 23:01
DX: C80.0 Disseminated malignant neoplasm, unspecified (principal); C77.9 Secondary and unspecified malignant neoplasm of lymph node, unspecified; Z71.6 Tobacco abuse counseling; Z72.0 Tobacco use; I10 Essential (primary) hypertension; I73.9 Peripheral vascular disease, unspecified; I25.2 Old myocardial infarction; Z79.82 Long term (current) use of aspirin
CPT/HCPCS: 71045; 93005; 99284

== ENCOUNTER → 2021-05-05 | Day surgery (SDC) | payer OTHER, SELFPAY ==
--- NOTE | 2021-05-05 10:59 | RAD REPORT ---
EXAM DESCRIPTION: US - Biopsy Lymph Node - 05/05/2021 10:38 am CLINICAL HISTORY: C80.1, C77.0 COMPARISON: No comparisons FINDINGS: Preoperative diagnosis: Right lateral neck mass. Post operative diagnosis: Same. Conscious Sedation: None Fluoroscopy time: None Contrast used: None Estimated blood loss: Minimal Specimens:3 x 18 gauge core biopsy specimens The right neck was prepped and draped in the usual sterile fashion. 1% lidocaine was infiltrated into the subcutaneous tissues for local anesthesia. Real time ultrasound scanning of the right neck demon strated 3-4 cm lobulated mass. Under ultrasound guidance, using a 18-gauge, 6 cm long, 2 cm throw cor e biopsy gun, 3 specimens were obtained of this lesion and sent to pathology for evaluation. There we re no complications. IMPRESSION: Successful ultrasound-guided core biopsy of right neck mass.
== END ==
LOC: FNA 10:00
PROVIDERS: ATTEND Internal Medicine Medical Oncology
PROC: BH4CZZZ Ultrasonography of Head and Neck (ICD-10-PCS; principal; 2021-05-05)
PROC: 0JB40ZX Excision of Right Neck Subcutaneous Tissue and Fascia, Open Approach, Diagnostic (ICD-10-PCS; 2021-05-05)
DX: C77.0 Secondary and unspecified malignant neoplasm of lymph nodes of head, face and neck (principal); C80.1 Malignant (primary) neoplasm, unspecified
CPT/HCPCS: 38505; 76942; 88305

== ENCOUNTER 2021-06-17 20:50 | Emergency (ER) | payer OTHER ==
--- OUTSIDE RECORDS SUMMARY | 2021-06-17 20:53 | XMS REPORT | Continuity of Care Document ---
:1955 Author Organization [facility] t Address [address] [place] [address] Care Team Providers Name Role Phone PCP, DOES NOT HAVE A Primary Care Physician Unavailable Jennifer MORRIS Attending Clinician Unavailable NAHOMI MARTE Attending Clinician Unavailable RAJEEV PEREZ Attending Clinician Unavailable YOGESH Attending Clinician Unavailable Darren Jewell Attending Clinician Belkis Perez MD Attending Clinician Belkis PEREZ JR Attending Clinician Unavailable Uday IBANEZ Attending Clinician Unavailable Attending Clinician Unavailable Darren CARBAJAL Attending Clinician Unavailable PEPE Attending Clinician Unavailable SAMUEL Attending Clinician Unavailable PEPE Admitting Clinician Unavailable Payers Payer Name Policy Type Policy Number Effective Date Expiration Date S [facility] MEDICAID PENDING PENDING 2019 2019 00:00:00 00:00:00 Problems Condition Condition Condition Status Onset Resolution Last Treating Co mments Source Name Details Category Date Date Treatment Clinician Date Back pain Back pain Disease Active 2020- Uni vers 1-08 ity of 00:00: [place] 00 Medical Branch Coronary Coronary Disease Active 2020-0 Unive rs artery artery 1-08 ity of disease disease 00:00: [place] involving involving 00 Medi micaela [facility] Branch coronary coronary artery of artery of [facility] heart with heart with unstable unstable angina angina pectoris pectoris Hypertensi Hypertensi Disease Active 2020-0 U nivers ve ve 1-08 [place] emergency [place] Essential Essential Disease Active Uni vers hypertensi hypertensi 1-08 it y of on on :: [address] Cigarette Cigarette Disease Active Uni vers smoker smoker -08 ity of 00:: [address] Hypokalemi Hypokalemi Disease Active U nivers a a 1-08 ity of 00:00: [address] COPD COPD Disease Active Univers (chronic (chronic - [place] of obstructiv [place]iv [place] Medical pulmonary pulmonary Bran ch disease) disease) NSTEMI NSTEMI Disease Active Univers (non-ST (non-ST - ity of elevated elevated 00:00: [place] myocardial myocardial 00 Me dical infarction infarction Br anch ) ) CAD CAD Problem Active Univers (coronary (coronary HL7.CCDAR2 ity of artery artery [facility]) disease) Physic i ans Hyperlipid Hyperlipid Problem Active U nivers emia, emia, HL7.CCDAR2 [place] Physici hyperlipid hyperlipid an s emia type emia type History of History of Problem Resolve Univers Heart Heart HL7.CCDAR2 d ity of disease disease [place] Physici ans Allergies, Adverse Reactions, Alerts Allergy Allergy Status Severity Reaction(s) Onset Inactive Treating Comm ents Source Name Type Date Date Clinician NO KNOWN Drug Active Univers ALLERGIE Class ity of S [facility] Social History Social Habit Start Date Stop Date Quantity Comments Source Exposure to Not sure University SARS-CoV-2 [facility] (event) Branch History of Cigarette Smoker Universi ty of tobacco use [facility] Alcohol intake 2021-04-02 2021-04-02 Current drinker Unive rsity of 00:00:00 00:00:00 of alcohol [facility] (finding) Branch Tobacco use and 2019-07-19 2019-07-19 Never used Universit y of exposure 00:00:00 00:00:00 [facility] Sex Ass[birth year] Universit y of 00:00:00 00:00:00 [facility] Smoking Status Start Date Stop Date Source Current every day smoker Univers ity of [place] Physicians Medications Ordered Filled Start Stop Current Ordering Indication Dosage Frequency Signature Comments Components Source Medication Medication Date Date Medication? Clinician (SIG) Name Name lisinopriL Yes 10mg Take 10 mg U nivers 10 mg 9-28 by mouth ity of tablet 14:16: daily. [place] [id number] Medical Branch atorvastati Yes 10mg Take 10 mg Univers n 10 mg 28 by mouth ity of tablet 14:16: at [place] [id number] bedtime. Medical Branch aspirin Yes 81mg Take 81 mg Univ ers (ADULT LOW 9-28 by mouth ity o f DOSE 14:16: daily. [place] ASPIRIN) 81 21 Medical mg EC Branch tablet carvedilol Yes 10mg Take 10 mg U nivers 10 mg 24 hr 04-08 by mouth ity of capsule 14:16: daily. [address] Branch amLODIPine Yes 10mg Take 10 mg U nivers 10 mg 28 by mouth ity of tablet 14:16: daily. [address] Branch clindamycin 2020- Yes [id number] 300mg Take 1 Univers 300 mg 9 10-09 capsule by ity of capsule 00:00: 04:59 mouth 4 [place] 00 :00 (four) Medical times Branch daily for 10 days. acetaminoph Yes [id number] 1{tbl} Take 1 Un ginette en-codeine 9-23 tablet by ity of 300-30 mg 00:00: mouth [place] tablet 00 every 6 Medical (six) Branch hours as needed for Pain (scale 4-6). Indication s: acute pain, right 2nd toe pain, PAD cilostazoL Yes [id number] 100mg Take 1 Univers 100 mg 9-15 tablet by ity of tablet 00:00: mouth 2 [place] 00 (two) Medical times Branch daily. clopidogreL Yes [id number] 75mg Take 1 Univers (PLAVIX) 75 9-15 tablet by ity of mg tablet 00:00: mouth [place] 00 daily. Medical Branch Simvastatin Simvastatin 2017-07 Yes ONOFRE LEO TAKE 1 Univers 20 MG Oral 20 MG Oral 1-07 D.O. TABLET BY ity of Tablet Tablet 00:00: MOUTH [place] 00 DAILY Physici ans Aspirin 81 Aspirin 81 Yes Uni vers MG TABS MG TABS ity of [place] Physici ans Carvedilol Carvedilol Yes ONOFRE LEO Q0.5D TAKE 1 Univers 12.5 MG 12.5 MG D.O. TABLET ity of Oral Tablet Oral Tablet TWICE [place] DAILY WITH Physici MEALS. ans Plavix 75 [...] TABLET i ty of Tablet Tablet DAILY [place] Physici ans Nitroglycer Nitroglycer Yes U nivers in 0.4 MG in 0.4 MG ity o f Sublingual Sublingual [place] as Tablet Tablet Physici Sublingual Sublingual ans Vital Signs Vital Name Observation Time Observation Value Comments Source Systolic blood 2021-04-08 133 mm[Hg] [facility] 19:16:00 [facility] Diastolic blood 2021-04-08 66 mm[Hg] University o f pressure 19:16:00 [facility] Heart rate 2021-04-08 52 /min [facility] 19:16:00 [facility] Body temperature 2021-04-08 36.78 Jamilah University of 19:06:00 [facility] Respiratory rate 2021-04-08 22 /min University of 19:06:00 [facility] Body height 2021-04-08 177.8 cm University of 19:06:00 [facility] Body weight 2021-04-08 59.875 kg University of 19:06:00 [facility] BMI 2021-04-08 18.94 kg/m2 University of 19:06:00 [facility] BP Systolic 2018-05-18 168 mm[Hg] Location: [facility] 15:46:00 Position: [place] Physician s Sitting BP Diastolic 2018-05-18 79 mm[Hg] Location: [facility] 15:46:00 Position: [place] Physician s Sitting Weight 2018-05-18 137.125 [lb_av] University o f 15:46:00 [place] Physician s Heart Rate 2018-05-18 64 /min [facility] 15:46:00 [place] Physician s Respiration Rate 2018-05-18 16 /min [facility] 15:46:00 [place] Physician s Procedures This patient has no known procedures. Encounters Start End Encounter Admission Attending Care Care Encounter Source Date/Time Date/Time Type Type Clinicians Facility Department ID 2021-04-15 Inpatient U [facility] CAR [id number] [facility] H 07:41:00 2019-10-02 Outpatient ARTURO LOLI [facility] [id number] M HSW 09:24:10 TANA 2019-07-20 Inpatient [facility] [id number] S W 21:22:00 2021-06-15 2021-06-15 Emergency [facility] MED [id number] [place] 00:00:00 22:23:00 Health 2021-06-11 2021-06-11 Emergency E ROSANNA [facility] [id number] [facility] 22:02:00 23:00:00 OTF 2021-06-11 2021-06-11 Emergency E ANA, [facility] [id number] [facility] 20:40:00 21:30:00 YELITZA 2021-04-14 2021-04-14 [facility] [id number] Univers 11:30:00 11:30:00 VARGAS [id number] jeanie [facility] 2021-04-14 2021-04-14 Outpatient R [facility] [id number] Univers 11:30:00 11:30:00 VARGAS delarosa [facility] 2021-04-08 2021-04-08 Office Marco Rubio UN[facility]ERSIT 1. [id number] Univers 13:57:37 14:45:38 Visit Parish Perez [facility] [id number] ity of [facility] [id number] [place] [id number] [address] 2021-04-08 2021-04-08 Outpatient Darren [facility] [id number] Univers 10:00:00 14:45:38 PARISH ware [facility] 2021-04-03 2021-04-03 Emergency X [facility] ERT [id number] Univers 19:37:00 19:37:00 jeanie [facility] 2021-04-02 2021-04-02 Emergency X SHAMAR HIMB ERT [id number] Univers 06:00:00 06:00:00 VERONICA [facility] 2021-03-26 2021-03-26 Emergency X [facility] ERT [id number] Univers 07:48:00 07:48:00 AUBREE [facility] 2021-03-18 2021-03-18 Emergency E [facility] [id number] [facility] 06:11:00 06:11:00 2020-10-29 2020-10-29 [facility] [id number] Univers 20:59:00 20:59:00 CORWIN [facility] 2019-07-18 2019-07-20 [facility] [id number] Univers 21:00:51 08:23:00 SAMMI [facility] 2018-05-18 2018-05-18 XIMENA Agrawal [id number] Univers 15:00:00 15:00:00 t; EDELMIRA BAKER Multi ity of PRAKASH, M.D. Specialty Shannon MBhaskar Physici ans Results This patient has no known results.
--- NOTE | 2021-06-18 00:55 | EDPHYS ---
Physician Documentation [facility] Name: Jeffy William Age: 65 yrs Sex: Male : 1955 Arrival Date: 06/17/2021 Time: 20:53 Bed Treatment Private MD: ED Physician Leonel Smyth HPI: 06/18 00:43 This 65 yrs old Male presents to ER via Ambulatory with complaints of Chest Wall Injury.[facility] 00:44 The patient's rash thought to be caused by an unknown cause. The rash is located on the mh7 chest. The rash can be described as isolated. Onset: The symptoms/episode began/occurred 2 day(s) ago. Associated signs and symptoms: Pertinent positives: itching, Swelling to area of right chest, Pertinent negatives: burning sensation, difficulty breathing, fever, nausea, Pain swelling of lips, swelling of throat, swelling of tongue, vomiting, wheezing. Severity of symptoms: At their worst the symptoms were mild yesterday, in the emergency department the symptoms are unchanged. Treatment given at home: None. Patient reports itchy rash to right chest area and swelling to the right lymph node under his arm. Patient reports diagnosis of cancer 2 months ago that involved lymph nodes. He denies any fever, cough, chest pain, shortness of breath, abdominal pain, nausea, vomiting, diarrhea, dizziness, numbness/tingling, facial swelling, neck swelling, tongue swelling, throat swelling or weakness. He has not attempted to take any medication for symptoms.. - Immunization history:: Client reports having NOT received the Covid vaccine. - Social history:: Smoking status: unknown. ROS: 00:44 Constitutional: Negative for fever, chills, and weight loss, Eyes: Negative for injury, mh7 pain, redness, and discharge, ENT: Negative for injury, pain, and discharge, Neck: Negative for injury, pain, and swelling. 00:44 Respiratory: Negative for shortness of breath, cough, wheezing, and pleuritic chest pain, Abdomen/GI: Negative for abdominal pain, nausea, vomiting, diarrhea, and constipation, Back: Negative for injury and pain, : Negative for injury, bleeding, discharge, and swelling, MS/Extremity: Negative for injury and deformity, Neuro: Negative for headache, weakness, numbness, tingling, and seizure, Psych: Negative for depression, anxiety, suicide ideation, homicidal ideation, and hallucinations, Endocrine: Negative for neck swelling, polydipsia, polyuria, polyphagia, and marked weight changes. 00:44 Cardiovascular: Negative for chest pain, edema, orthopnea, palpitations, paroxysmal nocturnal dyspnea. Exam: 00:44 Constitutional: This is a well developed, well nourished patient who is awake, alert, mh7 and in no acute distress. Head/Face: Normocephalic, atraumatic. Eyes: Pupils equal round and reactive to light, extra-ocular motions intact. Lids and lashes normal. Conjunctiva and sclera are non-icteric and not injected. Cornea within normal limits. Periorbital areas with no swelling, redness, or edema. Neck: Trachea midline, no thyromegaly or masses palpated, and no cervical lymphadenopathy. Supple, full range of motion without nuchal rigidity, or vertebral point tenderness. No Meningismus. 00:44 Cardiovascular: Regular rate and rhythm with a normal S1 and S2. No gallops, murmurs, or rubs. Normal PMI, no JVD. No pulse deficits. Respiratory: Lungs have equal breath sounds bilaterally, clear to auscultation and percussion. No rales, rhonchi or wheezes noted. No increased work of breathing, no retractions or nasal flaring. Abdomen/GI: Soft, non-tender, with normal bowel sounds. No distension or tympany. No guarding or rebound. No evidence of tenderness throughout. Back: No spinal tenderness. No costovertebral tenderness. Full range of motion. 00:44 MS/ Extremity: Pulses equal, no cyanosis. Neurovascular intact. Full, normal range of motion. Neuro: Awake and alert, GCS 15, oriented to person, place, time, and situation. Cranial nerves II-XII grossly intact. Motor strength 5/5 in all extremities. Sensory grossly intact. Cerebellar exam normal. Normal gait. Psych: Awake, alert, with orientation to person, place and time. Behavior, mood, and affect are within normal limits. 00:44 Chest/axilla: Inspection: rash, of the anterior aspect of right upper chest and right breast Palpation: is normal, no crepitus, no tenderness, Axilla: lymphadenopathy, that is small, in the right axilla, that is non-tender, Lymph nodes: Axillary nodes are palpable, on the right. 00:44 Skin: rash a mild rash is noted, rash can be described as nonspecific, on the Right chest wall. Vital Signs: 06/17 21:04 BP 175 / 89; Pulse 99; Resp 18; Temp 98.0; Pulse Ox 99% on R/A; Weight 58.97 kg; Height da3 5 ft. 10 in. (177.80 cm); 06/18 01:11 BP 160 / 85; Pulse 93; Resp 16 S; Temp 98.3(TE); Pulse Ox 96% on R/A; bb 06/17 21:04 Body Mass Index 18.65 (58.97 kg, 177.80 cm) da3 MDM: 00:50 Differential diagnosis: impetigo, varicella, allergic reaction, carcinoma. Data [facility] reviewed: vital signs, nurses notes, old medical records. Data interpreted: Pulse oximetry: on room air is 99 %. Interpretation: normal. Counseling: I had a detailed discussion with the patient and/or guardian regarding: the historical points, exam findings, and any diagnostic results supporting the discharge/admit diagnosis, the need for outpatient follow up, a heat sealing machine operator, hematology/oncology. Refusal of service: The patient/guardian displays adequate decision making capability and despite a detailed discussion of alternatives, benefits, risks, and consequences refuses: all lab tests, Medications, all X-rays. 00:55 Patient medically screened. [facility] Administered Medications: No medications were administered Disposition Summary: 06/18/21 00:55 Discharge Ordered Location: Home [facility] Problem: new [facility] Symptoms: have improved [facility] Condition: Stable [facility] Diagnosis - Rash and other nonspecific skin eruption 7 - Localized enlarged lymph nodes - Known malignancy [facility] Followup: [facility] - With: Private Physician - When: 1 - 2 days - Reason: Worsening of condition, Recheck today's complaints, Continuance of care, Re-evaluation by your physician Followup: [facility] - With: Manuel Rivera MD - When: 1 - 2 days - Reason: Worsening of condition, Recheck today's complaints Followup: [facility] - With: Savita Anderson MD - When: 1 - 2 days - Reason: Worsening of condition, Recheck today's complaints, Continuance of care, Re-evaluation by your physician Discharge Instructions: - Discharge Summary Sheet [facility] - Rash, Adult, [id number] [facility] - Lymphadenopathy [facility] Forms: - Medication Reconciliation Form [facility] - Thank You Letter [facility] - Antibiotic Education [facility] - Prescription Opioid Use [facility] Prescriptions: - Benadryl 25 mg Oral Capsule - take 1 capsule by ORAL route every 6 hours As needed; 30 tablet; Refills: 0, mh7 Product Selection Permitted Signatures: Symone Stark RN RN bb Holmes, Maurice, MD MD 7 Mesfin Ibarra RN RN da3 Corrections: (The following items were deleted from the chart) 06/17 21:07 21:06 PMHx: Hypertensive disorder; da3 da3 : 21:06 PMHx: Hypercholesterolemia; da3 da3 : 21:06 PMHx: Myocardial infarction; da3 da3 : 21:06 PMHx: peripheral vascular disease; da3 da3 : 21:06 PSHx: "tube from heart to help circulation to legs"; da3 da3
--- NOTE | 2021-06-18 00:55 | ER ---
Nurse's Notes [facility] Name: Jeffy William Age: 65 yrs Sex: Male : 1955 Arrival Date: 06/17/2021 Time: 20:53 Bed Treatment Private MD: Diagnosis: Rash and other nonspecific skin eruption;Localized enlarged lymph nodes-Known malignancy Presentation: 06/17 21:04 Chief complaint: Patient states: right chest and underarm swollen x1 day. Coronavirus da3 screen: Vaccine status: Patient reports being unvaccinated. Ebola Screen: No symptoms or risks identified at this time. Risk Assessment: Do you want to hurt yourself or someone else? Patient reports no desire to harm self or others. 21:04 Method Of Arrival: Ambulatory da3 21:04 Acuity: GINA 3 da3 Triage Assessment: 21:07 General: Appears in no apparent distress. comfortable, Behavior is calm, cooperative, da3 appropriate for age. - Immunization history:: Client reports having NOT received the Covid vaccine. - Social history:: Smoking status: unknown. Screenin/08 00:10 Abuse screen: Denies threats or abuse. Nutritional screening: No deficits noted. bb Tuberculosis screening: No symptoms or risk factors identified. Fall Risk None identified. Assessment: 00:10 General: Appears in no apparent distress. Behavior is calm, cooperative. Pain: bb Complains of pain in chest. Neuro: Level of Consciousness is awake, alert, obeys commands, Oriented to person, place, time, situation. Cardiovascular: Capillary refill < 3 seconds Patient's skin is warm and dry. Respiratory: Respiratory effort is even, unlabored, Respiratory pattern is regular. GI: Abdomen is non-distended. Derm: Skin is pink, warm \\T\\ dry. Musculoskeletal: Circulation, motion, and sensation intact. 01:10 Reassessment: Patient is alert, oriented x 3, equal unlabored respirations, skin bb warm/dry/pink. pt verbalized understanding of and agrees to plan of care discharge instructions given pt ambulated with steady gait to exit accompanied by family. Vital Signs: 06/17 21:04 BP 175 / 89; Pulse 99; Resp 18; Temp 98.0; Pulse Ox 99% on R/A; Weight 58.97 kg; Height da3 5 ft. 10 in. (177.80 cm); 06/18 01:11 BP 160 / 85; Pulse 93; Resp 16 S; Temp 98.3(TE); Pulse Ox 96% on R/A; bb 06/17 21:04 Body Mass Index 18.65 (58.97 kg, 177.80 cm) da3 ED Course: 06/17 20:53 Patient arrived in ED. da3 21:06 Triage completed. da3 06/18 00:09 Symone Stark, RN is Primary Nurse. bb 00:10 Patient has correct armband on for positive identification. Call light in reach. Adult bb w/ patient. 00:12 Leonel Smyth MD is Attending Physician. [facility] 00:52 Manuel Rivera MD is Referral Physician. [facility] 00:53 Savita Anderson MD is Referral Physician. [facility] 01:12 No provider procedures requiring assistance completed. Patient did not have IV access bb during this emergency room visit. Administered Medications: No medications were administered Outcome: 00:55 Discharge ordered by . [facility] 01:12 Discharged to home ambulatory, with family. bb 01:12 Condition: stable 01:12 Discharge instructions given to patient, Instructed on discharge instructions, follow up and referral plans. medication usage, Demonstrated understanding of instructions, follow-up care, medications, Prescriptions given X 1. 01:12 Patient left the ED. bb Signatures: Symone Stark, RN RN bb Leonel Smyth MD MD [facility] Mesfin Ibarra RN RN da3 Corrections: (The following items were deleted from the chart) 06/17 21: 21:06 PMHx: Hypertensive disorder; da3 da3 21:06 PMHx: Hypercholesterolemia; da3 da3 21:06 PMHx: Myocardial infarction; da3 da3 21:06 PMHx: peripheral vascular disease; da3 da3 21:06 PSHx: "tube from heart to help circulation to legs"; da3 da3
[2021-06-18 01:19] VITALS: BP 160/85; TEMP 98.3; O2SAT 96
== END 2021-06-18 01:12 | disposition home or self-care (01) ==
LOC: ER 20:50
DX: R21 Rash and other nonspecific skin eruption (principal); C96.9 Malignant neoplasm of lymphoid, hematopoietic and related tissue, unspecified
CPT/HCPCS: 99282

== ENCOUNTER 2021-07-06 19:04 | Emergency (ER) | payer OTHER ==
--- OUTSIDE RECORDS SUMMARY | 2021-07-06 19:08 | XMS REPORT | Continuity of Care Document ---
:1955 Author Organization [facility] t Address [address] [place] [address] Care Team Providers Name Role Phone PCP, DOES NOT HAVE A Primary Care Physician Unavailable Jennifer MORRIS Attending Clinician Unavailable Uday RAZO Attending Clinician Unavailable Dung MARC S Attending Clinician Doctor Unassigned, Name Attending Clinician Unavailable NAHOMI MARTE Attending Clinician Unavailable RAJEEV PEREZ Attending Clinician Unavailable LINDA Attending Clinician Unavailable YOGESH Attending Clinician Unavailable Darren Jewell Attending Clinician Belkis Perez MD Attending Clinician Belkis PEREZ JR Attending Clinician Unavailable Attending Clinician Unavailable JEEVAN FINN Attending Clinician Unavailable Darren CARBAJAL Attending Clinician Unavailable PEPE Attending Clinician Unavailable SAMUEL Attending Clinician Unavailable Uday RAZO Admitting Clinician Unavailable LINDA Admitting Clinician Unavailable PEPE Admitting Clinician Unavailable Payers Payer Name Policy Type Policy Number Effective Date Expiration Date S [facility] MEDICAID SSI PENDING 2021 PENDING 00:00:00 Problems Condition Condition Condition Status Onset Resolution Last Treating Co mments Source Name Details Category Date Date Treatment Clinician Date Back pain Back pain Disease Active 2020-0 Uni vers 1-08 ity of 00:00: [place] 00 Medical Branch Coronary Coronary Disease Active 2020- Unive rs artery artery 1-08 ity of disease disease 00:00: [place] involving involving 00 Medi m[place]ela [place] coronary coronary artery of artery of [place] heart with heart with unstable unstable angina angina pectoris pectoris Hypertensi Hypertensi Disease Active 2020- U nivers ve ve 1-08 ity of emergency emergency [facility] Essential Essential Disease Active 2019- Uni vers hypertensi hypertensi 1-08 it y of on on 00:00: [place] 00 Medical Branch Cigarette Cigarette Disease Active 2019- Uni vers smoker smoker 1-08 ity of 00:00: [address] Branch Hypokalemi Hypokalemi Disease Active 2019- U nivers a a 1-08 ity of 00:00: [place] [facility] Branch COPD COPD Disease Active 2019- Univers (chronic (chronic 1-08 ity of obstructiv [place]iv [place] Medical pulmonary pulmonary Bran ch disease) disease) NSTEMI NSTEMI Disease Active 2019- Univers (non-ST (non-ST 1-07 ity of elevated elevated 00:00: [place] myocardial myocardial 00 Me dical infarction infarction Br anch ) ) CAD CAD Problem Active Univers (coronary (coronary HL7.CCDAR2 ity of artery artery [place] disease) disease) Physic i ans Hyperlipid Hyperlipid Problem Active U nivers emia, emia, HL7.CCDAR2 ity of [place]spec[place] Physici hyperlipid hyperlipid an s emia type emia type History of History of Problem Resolve Univers Heart Heart HL7.CCDAR2 d ity of disease disease [place] Physici ans Allergies, Adverse Reactions, Alerts Allergy Allergy Status Severity Reaction(s) Onset Inactive Treating Comm ents Source Name Type Date Date Clinician NO KNOWN Drug Active Univers ALLERGIE Class ity of S [facility] Social History Social Habit Start Date Stop Date Quantity Comments Source Exposure to Not sure [place] of SARS-CoV-2 [place] Medical (event) Branch History of Cigarette Smoker Universi ty of tobacco use [facility] Alcohol intake 2021-04-02 2021-04-02 Current drinker Unive rsity of 00:00:00 00:00:00 of alcohol [place] Medical (finding) Branch Tobacco use and 2019-07-19 2019-07-19 Never used Universit y of exposure 00:00:00 00:00:00 [facility] Sex [birth year] Universit y of 00:00:00 00:00:00 [facility] Smoking Status Start Date Stop Date Source Current every day smoker Univers ity of [place] Physicians Medications Ordered Filled Start Stop Current Ordering Indication Dosage Frequency Signature Comments Components Source Medication Medication Date Date Medication? Clinician (SIG) Name Name amLODIPine 2020-07 Yes [id number] 10mg Take 1 Univers 10 mg 2-10 tablet by ity of tablet 00:00: mouth at [place] [address] bedtime. Medical Branch clopidogreL 2020-07 Yes [id number] 75mg Take 1 Univers (PLAVIX) 75 2-10 tablet by ity of mg tablet 00:00: mouth [place] [address] daily. Medical Branch lisinopriL 2020-07 Yes [id number] 40mg Take 2 Univers 20 mg 2-10 tablets by ity of tablet 00:00: mouth at [place] [address] bedtime. Medical Branch carvediloL 2020-07 Yes [id number] 6.25mg Take 1 Univers 6.25 mg 2-10 tablet by ity of tablet 00:00: mouth 2 [place] [address] (two) Medical times Branch daily with meals. lisinopriL Yes 10mg Take 10 mg U nivers 10 mg 9-28 by mouth ity of tablet 14:16: daily. [place] [address] Medical Branch atorvastati Yes 10mg Take 10 mg Univers n 10 mg 9-28 by mouth ity of tablet 14:16: at [place] [address] bedtime. Medical Branch aspirin Yes 81mg Take 81 mg Univ ers (ADULT LOW 9-28 by mouth ity o f DOSE 14:16: daily. [place] ASPIRIN) 81 21 Medical mg Branch tablet carvedilol Yes 10mg Take 10 mg U nivers 10 mg 24 hr 9-28 by mouth ity of capsule 14:16: daily. [address] Branch amLODIPine Yes 10mg Take 10 mg U nivers 10 mg 9-28 by mouth ity of tablet 14:16: daily. [address] Branch lisinopriL Yes 10mg Take 10 mg U nivers 10 mg 9-28 by mouth ity of tablet 14:16: daily. [address] Branch atorvastati Yes 10mg Take 10 mg Univers n 10 mg 9-28 by mouth ity of tablet 14:16: at [place] [address] bedtime. Medical Branch aspirin Yes 81mg Take 81 mg Univ ers (ADULT LOW 9-28 by mouth ity o f DOSE 14:16: daily. [place] ASPIRIN) 81 21 Medical mg EC Branch tablet carvedilol Yes 10mg Take 10 mg U nivers 10 mg 24 hr 9-28 by mouth ity of capsule 14:16: daily. [address] Branch amLODIPine Yes 10mg Take 10 mg U nivers 10 mg 9-28 by mouth ity of tablet 14:16: daily. [address] Branch lisinopriL Yes 10mg Take 10 mg U nivers 10 mg 9-28 by mouth ity of tablet 14:16: daily. [address] atorvastati Yes 10mg Take 10 mg Univers n 10 mg 9-28 by mouth ity of tablet 14:16: at [place] [address] bedtime. [facility] Branch aspirin Yes 81mg Take 81 mg Univ ers (ADULT LOW 9-28 by mouth ity o f DOSE 14:16: daily. [place] ASPIRIN) 81 21 Medical mg Branch tablet carvedilol Yes 10mg Take 10 mg U nivers 10 mg 24 hr 9-28 by mouth ity of capsule 14:16: daily. [address] amLODIPine Yes 10mg Take 10 mg U nivers 10 mg 9-28 by mouth ity of tablet 14:16: daily. [address] Branch clindamycin 2020- Yes [id number] 300mg Take 1 Univers 300 mg 9-28 10-09 capsule by ity of capsule 00:00: 04:59 mouth 4 [place] 00 :00 (four) Medical times Branch daily for 10 days. acetaminoph Yes [id number] 1{tbl} Take 1 Un ginette en-codeine 9-23 tablet by ity of 300-30 mg 00:00: mouth [place] tablet 00 every 6 Medical (six) Branch hours as needed for Pain (scale 4-6). Indication s: acute pain, right 2nd toe pain, PAD acetaminoph 2020-0 Yes [id number] 1{tbl} Take 1 Un ginette en-codeine 9-23 tablet by ity of 300-30 mg 00:00: mouth [place] tablet 00 every 6 Medical (six) Branch hours as needed for Pain (scale 4-6). Indication s: acute pain, right 2nd toe pain, PAD acetaminoph 2020-0 Yes 4647 1{tbl} Take 1 Un ginette en-codeine 9-23 tablet by ity of 300-30 mg 00:00: mouth [place] tablet 00 every 6 Medical (six) Branch hours as needed for Pain (scale 4-6). Indication s: acute pain, right 2nd toe pain, PAD cilostazoL Yes [id number] 100mg Take 1 Univers 100 mg 9-15 tablet by ity of tablet 00:00: mouth 2 [place] (two) Medical times Branch daily. clopidogreL Yes [id number] 75mg Take 1 Univers (PLAVIX) 75 9-15 tablet by ity of mg tablet 00:00: mouth [place] 00 daily. Medical Branch cilostazoL Yes [id number] 100mg Take 1 Univers 100 mg 9-15 tablet by ity of tablet 00:00: mouth [place] (two) Medical times Branch daily. clopidogreL Yes [id number] 75mg Take 1 Univers (PLAVIX) 75 9-15 tablet by ity of mg tablet 00:00: mouth [place] 00 daily. Medical Branch cilostazoL Yes [id number] 100mg Take 1 Univers 100 mg 9-15 tablet by ity of tablet 00:00: mouth [place] (two) Medical times Branch daily. clopidogreL Yes [id number] 75mg Take 1 Univers (PLAVIX) 75 9-15 tablet by ity of mg tablet 00:00: mouth [place] 00 daily. Medical Branch Simvastatin Simvastatin 2017-07 Yes ONOFRE LEO TAKE 1 Univers 20 MG Oral 20 MG Oral 1-07 D.O. TABLET BY ity of Tablet Tablet 00:00: MOUTH [place] 00 DAILY Physici ans Aspirin 81 Aspirin 81 Yes Uni vers MG TABS MG TABS ity of [place] Physici ans Carvedilol Carvedilol Yes ONOFRE LEO Q0.5D TAKE 1 Univers 12.5 MG 12.5 MG D.O. TABLET ity of Oral Tablet Oral Tablet TWICE [place] DAILY WITH Physici MEALS. ans Plavix 75 [...] Time Observation Value Comments Source Systolic blood 2021-06-21 148 mm[Hg] University of pressure 05:00:00 [facility] Diastolic blood 2021-06-21 69 mm[Hg] University o f pressure 05:00:00 [facility] Heart rate 2021-06-21 81 /min University 05:00:00 [facility] Respiratory rate 2021-06-21 21 /min University 05:00:00 [facility] Oxygen saturation 2021-06-21 93 /min [facility] in Arterial blood 05:00:00 [facility] by Pulse oximetry [place] Body temperature 2021-06-21 37.06 Jamilah [facility] 00:42:00 [facility] Body weight 2021-06-21 58.514 kg University of 00:42:00 [facility] BMI 2021-06-21 18.51 kg/m2 University of 00:42:00 [facility] Systolic blood 2021-04-08 133 mm[Hg] University of pressure 19:16:00 [facility] Diastolic blood 2021-04-08 66 mm[Hg] University o f pressure 19:16:00 [facility] Heart rate 2021-04-08 52 /min [place] of 19:16:00 [facility] Body temperature 2021-04-08 36.78 Jamilah University of 19:06:00 [facility] Respiratory rate 2021-04-08 22 /min [facility] 19:06:00 [facility] Body height 2021-04-08 177.8 cm University of 19:06:00 [facility] Body weight 2021-04-08 59.875 kg [facility] 19:06:00 [facility] BMI 2021-04-08 18.94 kg/m2 [facility] 19:06:00 [facility] BP Systolic 2018-05-18 168 mm[Hg] Location: [facility] 15:46:00 Position: [place] Physician s Sitting BP Diastolic 2018-05-18 79 mm[Hg] Location: [facility]; [facility] 15:46:00 Position: [place] Physician s Sitting Weight 2018-05-18 137.125 [lb_av] University o f 15:46:00 [place] Physician s Heart Rate 2018-05-18 64 /min [facility] 15:46:00 [place] Physician s Respiration Rate 2018-05-18 16 /min [facility] 15:46:00 [place] Physician s Procedures Procedure Date / Time Performed Performing Clinician Sour e EKG-12 LEAD 2021-06-21 05:18:46 Veronica Razo [facility] TROPONIN I 2021-06-21 03:53:00 Veronica Razo [facility] XR CHEST 1 VW 2021-06-21 03:02:45 Veronica Razo [facility] TROPONIN I 2021-06-21 01:44:00 Veronica Razo [facility] COMP. METABOLIC PANEL 2021-06-21 01:44:00 Veronica aRzo [facility] ([id number]) [facility] CBC WITH DIFF 2021-06-21 01:44:00 Veronica Razo [facility] CONSENT/REFUSAL FOR 2021-06-21 00:22:15 Doctor Unassigned, No Un [facility] DIAGNOSIS AND Name [facility] TREATMENT Encounters Start End Encounter Admission Attending Care Care Encounter Source Date/Time Date/Time Type Type Clinicians Facility Department ID 2019-10-02 Outpatient JOSE LUIS MORRIS [id number] M HSW 09:24:10 TANA 2019-07-20 Inpatient JOSE LUIS ECHAVARRIA [id number] [facility] W 21:22:00 2021-06-20 2021-06-20 Emergency X JOHN RAZO ERT [id number] Univers 18:45:00 23:35:00 VERONICA ware [facility] 2021-06-20 2021-06-20 [facility] [id number] Univers 18:45:00 23:35:00 Veronica GRAY [id number] ity of [place] [id number] [facility] 084 Branch 2021-06-20 2021-06-20 Orders Doctor ALLAN [id number] Univers 00:00:00 00:00:00 Only Unassigned, HELDER [id number] ity of [place] [facility] 4.2.7.2.686 [place] [id number] [facility] 009 Branch 2021-06-15 2021-06-15 Emergency [facility] [id number] [place] 00:00:00 22:23:00 Health 2021-06-11 2021-06-11 Emergency E ROSANNA, [facility] MHSW [id number] 22:02:00 23:00:00 OTF 2021-06-11 2021-06-11 Emergency E ANA, [facility] 750[address] [facility] 20:40:00 21:30:00 YELITZA 2021-04-15 2021-04-16 Inpatient U ASHLEYMARISSA, [facility] CAR [id number] [facility] 07:41:00 10:31:00 ANASTASIIA 2021-04-14 2021-04-14 [id number] Univers 11:30:00 11:30:00 VARGAS [id number] jeanie mckenzie [facility] 2021-04-14 2021-04-14 [facility] [id number] Univers 11:30:00 11:30:00 VARGAS mckenzie [facility] 2021-04-08 2021-04-08 Office Marco Rubio [id number]. [id number] Univers 13:57:37 14:45:38 Visit Parish Perez [facility] [id number] ity of [facility] 4.2.7.2.686 [facility] [id number] [facility] 205 Branch 2021-04-08 2021-04-08 Outpatient R TROY BECKETT, [facility] [id number] Univers 10:00:00 14:45:38 PARISH [facility] 2021-04-03 2021-04-03 Emergency X [facility] ERT [id number] Univers 19:37:00 19:37:00 [facility] 2021-04-02 2021-04-02 Emergency X DUNG, [facility] ERT [id number] Univers 06:00:00 06:00:00 VERONICA [facility] 2021-03-26 2021-03-26 Emergency X , [facility] ERT [id number] Univers 07:48:00 07:48:00 AUBREE [facility] 2021-03-18 2021-03-18 Emergency E FINN, [facility] [id number] [facility] 06:11:00 11:53:00 DARIUS 2020-10-29 2020-10-29 Emergency X RAVEN, [facility] ERT [id number] Univers 20:59:00 20:59:00 CORWIN [facility] 2019-07-18 2019-07-20 Inpatient X PEPE, [facility] NATALI [id number] Univers 21:00:51 08:23:00 SAMIM [facility] 2018-05-18 2018-05-18 AppointXIMENA Dangelo [id number] Univers 15:00:00 15:00:00 t; EDELMIRA BAKER Multi ity Clarisa [facility] Physici ans Results Test Description Test Time Test Comments Results Result Comments Source TROPONIN I 2021-06-21 04:22:33 Test Item Value Reference Range Interpretation Comme nts TROPONIN I (test code = 0.003 ng/mL See_Comment [Au tomated message] The [id number]) system which ge nerated this result tra nsmitted reference range : <=0.034. The reference r tomeka was not used to int erpret this result as normal/abnormal . GEOVANNA (test code = GEOVANNA) Reference (Normal) Range (defined by the 99th percentile reference limit): <= 0.034 ng/mL Note: Cardiac troponin begins to rise 3-4 hours after the onset of ischemia. Repeat in 4-6 hours if the sample was drawn within 3-4 hours of the onset of the symptom and found normal. Diagnosis of myocardial injury is made with acute changes in cTn concentrations with at least one serial sample above the 99th percentile upper reference limit (URL), taken together with the patient's clinical presentation. Biotin has been reported to cause a negative bias, interpret results relative to patient's use of biotin. Lab Interpretation Normal (test code = 07672-4) [id number] 02:26:43 Test Item Value Reference Interpretation Comments Range TROPONIN I (test 0.004 ng/mL See_Comment [Automated code = [id number]) message] The system which generated this result transmitted reference range : <=0.034. The reference range was not used to interpret this result as normal/abnormal . GEOVANNA (test code = Reference (Normal) GEOVANNA) Range (defined by the 99th percentile reference limit): <= 0.034 ng/mL Note: Cardiac troponin begins to rise 3-4 hours after the onset of ischemia. Repeat in 4-6 hours if the sample was drawn within 3-4 hours of the onset of the symptom and found normal. Diagnosis of myocardial injury is made with acute changes in cTn concentrations with at least one serial sample above the 99th percentile upper reference limit (URL), taken together with the patient's clinical presentation. Biotin has been reported to cause a negative bias, interpret results relative to patient's use of biotin. Lab Interpretation Normal (test code = 34705-9) [facility] (79867)2021-06-21 02:15:20 Test Item Value Reference Range Interpretation Comments NA (test code = 131 mmol/L 135-145 L 4264530156) K (test code = 4.4 mmol/L 3.5-5.0 2958311167) CL (test code = 96 mmol/L 98-108 L 9950009385) CO2 TOTAL (test code = 27 mmol/L 23-31 6707358092) AGAP (test code = 2-16 9161666349) BUN (test code = 19 mg/dL 7-23 6652531895) GLUCOSE (test code = 106 mg/dL 70-110 2979194146) CREATININE (test code = 1.12 mg/dL 0.60-1.25 4011513850) TOTAL BILI (test code = 0.3 mg/dL 0.1-1.7 0599059093) CALCIUM (test code = 9.0 mg/dL 8.6-10.6 2897154122) T PROTEIN (test code = 6.8 g/dL 6.3-8.2 9393911974) ALBUMIN (test code = 3.6 g/dL 3.5-5.0 9761379677) ALK PHOS (test code = 79 U/L 34-122 8802211543) ALTv (test code = 14 U/L 5-50 1742-6) AST(SGOT) (test code = 31 U/L 13-40 4374903212) eGFR (test code = mL/min/1.73m2 3826358738) GEOVANNA (test code = GEOVANNA) Association of Glomerular Filtration Rate (GFR) and Staging of Kidney Disease* + --+ --+ ------+| GFR (mL/min/1.73 m2) ?| With Kidney Damage ?| ?Without Kidney Damage+ --------+ --------+ +| ?>90 ?| ?Stage one ?| ? Normal ?+ ---+ ---+ -------+| ?60-89 ?| ?Stage two ?| ? Decreased GFR ? + --+ --+ ------+| ?30-59 ?| ?Stage three ?| ? Stage three ? + --+ --+ ------+| ?15-29 ?| ?Stage four ? | ? Stage four ?+ ---+ ---+ -------+| ?<15 (or dialysis) ? ?| ?Stage five ? | ? Stage five ?+ ---+ ---+ -------+ *Each stage assumes the associated GFR level has been in effect for at least three months. ?Stages 1 to 5, with or without kidney disease, indicate chronic kidney disease. Notes: Determination of stages one and two (with eGFR >59mL/min/1.73 m2) requires estimation of kidney damage for at least three months as defined by structural or functional abnormalities of the kidney, manifested by either:Pathological abnormalities or Markers of kidney damage (including abnormalities in the composition of the blood or urine or abnormalities in imaging tests). Lab Interpretation Abnormal (test code = 66894-7) [facility] WITH [id number] 02:06:01 Test Item Value Reference Range Interpretation Comments WBC (test code = See_Comment [Automated 6690-2) message] The sy stem which generated this result transmitted reference range : 4.20 - 10.70 10*3/?L. The reference range was not used to interpret this result as normal/abnormal . RBC (test code = See_Comment L [Automated 789-8) message] The sy stem which generated this result transmitted reference range : 4.26 - 5.52 10*6/?L. The reference range was not used to interpret this result as normal/abnormal . HGB (test code = 11.7 g/dL 12.2-16.4 L 718-7) HCT (test code = 35.2 % 38.4-49.3 L 4544-3) MCV (test code = 88.9 fL 81.7-95.6 787-2) MCH (test code = 29.5 pg 26.1-32.7 785-6) MCHC (test code = 33.2 g/dL 31.2-35.0 786-4) RDW-SD (test code = 45.6 fL 38.5-51.6 21829-2) RDW-CV (test code = 14.0 % 12.1-15.4 788-0) PLT (test code = See_Comment [Automated 777-3) message] The sy stem which generated this result transmitted reference range : 150 - 328 10*3/ ?L. The reference r tomeka was not used to interpret this result as normal/abnormal . MPV (test code = 9.0 fL 9.8-13.0 L 84008-1) NRBC/100 WBC (test See_Comment [Automat ed code = 4632847014) message] The system which generated this result transmitted reference range : 0.0 - 10.0 /100 WBCs. The refer ence range was not u sed to interpret th is result as normal/abnormal . NRBC x10^3 (test code <0.01 See_Comment [Auto mated = 6854045526) message] The s ystem which generated this result transmitted reference range : 10*3/?L. The reference range was not used to interpret this result as normal/abnormal . GRAN MAT (NEUT) % 75.7 % (test code = 770-8) IMM GRAN % (test code 0.40 % = 1636105862) LYMPH % (test code = 13.0 % 736-9) MONO % (test code = 7.8 % 5905-5) EOS % (test code = 2.6 % 713-8) BASO % (test code = 0.5 % 706-2) GRAN MAT x10^3(ANC) 5.63 10*3/uL 1.99-6.95 (test code = 0133723485) IMM GRAN x10^3 (test 0.03 10*3/uL 0.00-0.06 code = 5473893898) LYMPH x10^3 (test code 0.97 10*3/uL 1.09-3.23 L = 731-0) MONO x10^3 (test code 0.58 10*3/uL 0.36-1.02 = 742-7) EOS x10^3 (test code = 0.19 10*3/uL 0.06-0.53 711-2) BASO x10^3 (test code 0.04 10*3/uL 0.01-0.09 = 704-7) Lab Interpretation Abnormal (test code = 72260-2) [facility]"
[2021-07-06 19:56] LABS: Absolute Lymphocytes (CBC) 0.8 K/uL (0.7-4.9); Hematocrit 37.4 % (39.6-49.0); Lymphocytes % 10.5 % (15.3-44.8); MPV 6.9 fL (7.6-11.3); RBC Red Blood Cell Count 4.24 M/uL (4.33-5.43)
[2021-07-06 20:02] LABS: Protime INR 1.09
[2021-07-06 20:13] LABS: ALT/SGPT 24 U/L (12-78); AST/SGOT 26 U/L (15-37); Albumin 2.7 g/dL (3.4-5.0); BUN Blood Urea Nitrogen 20 mg/dL (7-18); Bicarbonate 26 mmol/L (21-32); Bilirubin Direct < 0.1 mg/dL (0-0.2); Glucose Level 120 mg/dL (74-106); Magnesium 2.2 mg/dL (1.8-2.4); Potassium 4.3 mmol/L (3.5-5.1); Sodium Level 136 mmol/L (136-145)
[2021-07-06 20:18] LABS: Alkaline Phosphatase 77 U/L (45-117); Bilirubin Total 0.3 mg/dL (0.2-1.0); NT PRO-BNP 1606 pg/mL (<125); Protein, Total 7.4 g/dL (6.4-8.2); Troponin (Emerg Dept Use Only) < 0.02 ng/mL (0.0-0.045)
--- NOTE | 2021-07-06 20:27 | RAD REPORT ---
EXAM DESCRIPTION: RAD - Chest Single View - 07/06/2021 7:44 pm CLINICAL HISTORY: SWELLING Chest pain. COMPARISON: Chest Single View dated 04/23/2021; Chest Single View dated 04/15/2021; Chest For Pe Kasandra o dated 04/15/2021; Ct Skull/Thigh dated 05/22/2021 FINDINGS: Portable technique limits examination quality. Multiple nodules are present in both lungs compatible with metastatic disease. Small right pleural ef fusion is present with rounded mass in the right lung base likely additional metastatic lesion. The h eart is moderately enlarged in size. No destructive bone lesion.
--- NOTE | 2021-07-06 21:46 | RAD REPORT ---
EXAM DESCRIPTION: US - UPPER EXTREMITY VENOUS UNILATE - 07/06/2021 9:26 pm CLINICAL HISTORY: SWELLING Right arm swelling COMPARISON: Extrem Venous W Compress Ishmael dated 04/15/2021 FINDINGS: Right upper extremity venous system was interrogated with Doppler technique. Normal flow, compressibility and augmentation was noted. There is no DVT present. IMPRESSION: No evidence of right upper extremity deep venous thrombosis.
[2021-07-06] MEDS ORDERED: VANCOMYCIN 1 GM/VIAL ONE (22:35)
[2021-07-06] MEDS ORDERED: NA CHLORIDE 0.9% 250 ML ONE (22:36)
--- NOTE | 2021-07-06 23:15 | ER ---
Nurse's Notes [facility] Name: Jeffy William Age: 65 yrs Sex: Male : 1955 Arrival Date: 07/06/2021 Time: 19:09 Bed 19 Private MD: Diagnosis: Cellulitis right upper extremity. Ca lung with metastasis Presentation: 07/06 19:18 Chief complaint: Patient states: just noticed his right arm is swollen and has been iw dizzy, has hx of lung cancer but has not started treatment because he has fluid on his heart. Coronavirus screen: At this time, the client does not indicate any symptoms associated with coronavirus-19. Ebola Screen: Patient negative for fever greater than or equal to 101.5 degrees Fahrenheit, and additional compatible Ebola Virus Disease symptoms Patient denies exposure to infectious person. Patient denies travel to an Ebola-affected area in the 21 days before illness onset. No symptoms or risks identified at this time. Initial Sepsis Screen: Does the patient meet any 2 criteria? No. Patient's initial sepsis screen is negative. Does the patient have a suspected source of infection? No. Patient's initial sepsis screen is negative. Risk Assessment: Do you want to hurt yourself or someone else? Patient reports no desire to harm self or others. Onset of symptoms was July 06, 2021. 19:18 Method Of Arrival: Ambulatory iw 19:18 Acuity: GINA 3 iw Historical: - Allergies: 19:19 No Known Allergies; iw - PMHx: 19:19 lung cancer; Hypertensive disorder; Myocardial infarction; iw - PSHx: 19:19 femoral artery bypass; iw - Immunization history:: Adult Immunizations up to date. - Social history:: Smoking status: Patient reports the use of cigarette tobacco products, smokes one pack cigarettes per day. Patient/guardian denies using alcohol. Screenin:36 Abuse screen: Denies threats or abuse. Denies injuries from another. Nutritional ld1 screening: No deficits noted. Tuberculosis screening: No symptoms or risk factors identified. Fall Risk None identified. Assessment: 19:36 General: Appears in no apparent distress. comfortable, Behavior is calm, cooperative, ld1 appropriate for age. Pain: Denies pain. Neuro: Level of Consciousness is awake, alert, obeys commands, Oriented to person, place, time, situation, Appropriate for age. Cardiovascular: Capillary refill < 3 seconds Patient's skin is warm and dry. Rhythm is regular. Cardiovascular:. Respiratory: Airway is patent Respiratory effort is even, unlabored, Respiratory pattern is regular, symmetrical. GI: Abdomen is flat, non-distended. : No signs and/or symptoms were reported regarding the genitourinary system. EENT: No signs and/or symptoms were reported regarding the EENT system. Derm:. Musculoskeletal: Swelling present in right arm. Vital Signs: 19:18 BP 150 / 96; Pulse 94; Resp 16; Temp 97.9; Pulse Ox 96% on R/A; Weight 60.33 kg; Height iw 5 ft. 10 in. (177.80 cm); 19:41 BP 155 / 95; Pulse 90; Resp 18; Pulse Ox 97% on R/A; Pain 0/10; ld1 20:57 BP 129 / 80; Pulse 83; Resp 27; Pulse Ox 94% on R/A; ld1 22:16 BP 143 / 82; Pulse 86; Resp 18; Pulse Ox 95% on R/A; ld1 23:10 BP 149 / 78; Pulse 83; Resp 23; Pulse Ox 95% on R/A; ld1 19:18 Body Mass Index 19.08 (60.33 kg, 177.80 cm) iw ED Course: 19:09 Patient arrived in ED. ja2 19:19 Triage completed. iw 19:34 Maritza Ornelas, RN is Primary Nurse. ld1 19:36 Patient has correct armband on for positive identification. ld1 19:36 Placed in gown. Bed in low position. Call light in reach. Side rails up X2. Cardiac ld1 monitor on. Pulse ox on. NIBP on. Door closed. Noise minimized. Warm blanket given. 19:36 No provider procedures requiring assistance completed. Inserted saline lock: 20 gauge ld1 in left antecubital area, using aseptic technique. Blood collected. 19:40 Initial lab(s) drawn, by me, sent to lab. kj1 19:43 Nestor Eugene MD is Attending Physician. pkl 19:44 XRAY Chest (1 view) In Process Unspecified. EDMS 21:26 UPPER EXTREMITY VENOUS UNILATE In Process Unspecified. EDMS 07/07 00:16 IV discontinued, intact, bleeding controlled, No redness/swelling at site. ld1 00:17 Arm band placed on right wrist. ld1 Administered Medications: 07/06 22:41 Drug: vancoMYCIN 1 grams Route: IVPB; Infused Over: 2 hrs; Site: left antecubital; ld1 07/07 00:15 Follow up: Response: No adverse reaction; IV Status: Completed infusion; IV Intake: ld1 250ml Intake: 00:15 IV: 250ml; Total: 250ml. ld1 Outcome: 07/06 23:15 Discharge ordered by MD. gomez 07/07 00:16 Discharged to home ambulatory. ld1 Condition: stable Discharge instructions given to patient, Instructed on discharge instructions, follow up and referral plans. Demonstrated understanding of instructions, follow-up care, medications, Prescriptions given X 1. 00:17 Patient left the ED. ld1 Signatures: Dispatcher [employer] Nestor Gregory MD MD pkl Williams, Irene, RN RN iw Jackson, Kandis kj1 Maritza Ornelas RN RN ld1 Bety Castellano
--- NOTE | 2021-07-06 23:16 | EDPHYS ---
Physician Documentation [facility] Name: Jeffy William Age: 65 yrs Sex: Male : 1955 Arrival Date: 07/06/2021 Time: 19:09 Bed 19 Private MD: ED Physician Nestor Eugene HPI: 07/06 20:07 This 65 yrs old Male presents to ER via Ambulatory with complaints of Dizziness, Arm pkl Problem. 20:07 The patient or guardian complains of swelling. The complaints affect the right upper pkl extremity. Onset: The symptoms/episode began/occurred today. Associated signs and symptoms: Pertinent positives: Dizziness. Symptom resolved on arrival in ER. Patient recently diagnosed with lung cancer. Awaiting chemotherapy. Historical: - Allergies: 19:19 No Known Allergies; iw - PMHx: 19:19 lung cancer; Hypertensive disorder; Myocardial infarction; iw - PSHx: 19:19 femoral artery bypass; iw - Immunization history:: Adult Immunizations up to date. - Social history:: Smoking status: Patient reports the use of cigarette tobacco products, smokes one pack cigarettes per day. Patient/guardian denies using alcohol. ROS: 20:07 Eyes: Negative for injury, pain, redness, and discharge, ENT: Negative for injury, pkl pain, and discharge, Neck: Negative for injury, pain, and swelling, Cardiovascular: Negative for chest pain, palpitations, and edema, Respiratory: Negative for shortness of breath, cough, wheezing, and pleuritic chest pain, Abdomen/GI: Negative for abdominal pain, nausea, vomiting, diarrhea, and constipation, Back: Negative for injury and pain, : Negative for injury, bleeding, discharge, and swelling. 20:07 MS/extremity: Positive for swelling, of the right upper extremity . 20:07 Skin: Positive for erythema, of the right upper extremity. 20:07 Neuro: Positive for dizziness, Negative for gait disturbance, headache, numbness, speech changes, visual changes, weakness. Exam: 20:07 Head/Face: Normocephalic, atraumatic. Eyes: Pupils equal round and reactive to light, pkl extra-ocular motions intact. Lids and lashes normal. Conjunctiva and sclera are non-icteric and not injected. Cornea within normal limits. Periorbital areas with no swelling, redness, or edema. ENT: Nares patent. No nasal discharge, no septal abnormalities noted. Tympanic membranes are normal and external auditory canals are clear. Oropharynx with no redness, swelling, or masses, exudates, or evidence of obstruction, uvula midline. Mucous membranes moist. Neck: Trachea midline, no thyromegaly or masses palpated, and no cervical lymphadenopathy. Supple, full range of motion without nuchal rigidity, or vertebral point tenderness. No Meningismus. Chest/axilla: Normal chest wall appearance and motion. Nontender with no deformity. No lesions are appreciated. Cardiovascular: Regular rate and rhythm with a normal S1 and S2. No gallops, murmurs, or rubs. Normal PMI, no JVD. No pulse deficits. Respiratory: Lungs have equal breath sounds bilaterally, clear to auscultation and percussion. No rales, rhonchi or wheezes noted. No increased work of breathing, no retractions or nasal flaring. Abdomen/GI: Soft, non-tender, with normal bowel sounds. No distension or tympany. No guarding or rebound. No evidence of tenderness throughout. Back: No spinal tenderness. No costovertebral tenderness. Full range of motion. 20:07 Skin: cellulitis, that is mild, on the right upper extremity. 20:07 Neuro: Orientation: is normal, Mentation: is normal, Memory: is normal, Cranial nerves: is grossly normal based on the patient's age, Cerebellar function: is grossly normal, Motor: is normal, Sensation: is normal, Gait: is steady. Vital Signs: 19:18 BP 150 / 96; Pulse 94; Resp 16; Temp 97.9; Pulse Ox 96% on R/A; Weight 60.33 kg; Height iw 5 ft. 10 in. (177.80 cm); 19:41 BP 155 / 95; Pulse 90; Resp 18; Pulse Ox 97% on R/A; Pain 0/10; ld1 20:57 BP 129 / 80; Pulse 83; Resp 27; Pulse Ox 94% on R/A; ld1 22:16 BP 143 / 82; Pulse 86; Resp 18; Pulse Ox 95% on R/A; ld1 23:10 BP 149 / 78; Pulse 83; Resp 23; Pulse Ox 95% on R/A; ld1 19:18 Body Mass Index 19.08 (60.33 kg, 177.80 cm) iw MDM: 19:43 Patient medically screened. pkl 22:34 Data reviewed: vital signs, nurses notes, lab test result(s), EKG, radiologic studies. [facility] ED course: Discussed lab, EKG and imaging studies with patient and daughter. Advised to follow up with his Oncologist in 2 to 3 days. To return if necessary. Patient and daughter understood instructions. 07/06 19:34 Order name: Basic Metabolic Panel [facility] 07/06 19:34 Order name: CBC with Diff [facility] 07/06 19:34 Order name: LFT's [facility] 07/06 19:34 Order name: Magnesium [facility] 07/06 19:34 Order name: NT PRO-BNP; Complete Time: 20:37 [facility] 07/06 19:34 Order name: PT-INR; Complete Time: 20:37 [facility] 07/06 19:34 Order name: Troponin (emerg Dept Use Only); Complete Time: 20:37 [facility] 07/06 19:35 Order name: Basic Metabolic Panel; Complete Time: 20:37 ED[facility] 07/06 19:35 Order name: CBC with Automated Diff; Complete Time: 20:37 EDMS 07/06 19:35 Order name: Liver (Hepatic) Function; Complete Time: 20:37 EDMS 07/06 19:35 Order name: Magnesium; Complete Time: 20:37 [facility] 07/06 19:54 Order name: D-Dimer; Complete Time: 20:37 [facility] 07/06 19:59 Order name: Sed Rate; Complete Time: 21:08 [facility] 07/06 19:59 Order name: CRP; Complete Time: 20:37 [facility] 07/06 19:34 Order name: XRAY Chest (1 view); Complete Time: 20:37 [facility] 07/06 19:34 Order name: EKG; Complete Time: 19:35 [facility] 07/06 19:34 Order name: Cardiac monitoring; Complete Time: 19:34 [facility] 07/06 19:34 Order name: EKG - Nurse/Tech; Complete Time: 19:36 [facility] 07/06 19:34 Order name: IV Saline Lock; Complete Time: 19:36 [facility] 07/06 19:34 Order name: Labs collected and sent; Complete Time: 19:36 [facility] 07/06 19:34 Order name: O2 Per Protocol; Complete Time: 19:36 ld1 07/06 19:34 Order name: O2 Sat Monitoring; Complete Time: 19:40 ld1 07/06 19:59 Order name: Blood Culture Adult (2) pkl 07/06 20:24 Order name: COVID-19 SARS RT PCR (Document "Date of Onset" if Symptomatic); Complete kj1 Time: 22:25 07/06 20:25 Order name: UPPER EXTREMITY VENOUS UNILATE; Complete Time: 22:25 EDMS Administered Medications: 22:41 Drug: vancoMYCIN 1 grams Route: IVPB; Infused Over: 2 hrs; Site: left antecubital; ld1 07/07 00:15 Follow up: Response: No adverse reaction; IV Status: Completed infusion; IV Intake: ld1 250ml Disposition Summary: 07/06/21 23:15 Discharge Ordered Location: Home pkl Problem: new pkl Symptoms: have improved pkl Condition: Stable pkl Diagnosis - Cellulitis right upper extremity. Ca lung with metastasis pkl Followup: pkl - With: Private Physician - When: 2 - 3 days - Reason: Re-evaluation by your physician Discharge Instructions: - Discharge Summary Sheet pkl Forms: - Medication Reconciliation Form pkl - Thank You Letter pkl - Antibiotic Education pkl - Prescription Opioid Use pkl Prescriptions: - Clindamycin HCl 150 mg Oral Capsule - take 1 capsule by ORAL route every 6 hours for 10 days; 40 capsule; Refills: 0, pkl Product Selection Permitted Signatures: Dispatcher [employer] EDNestor Omer MD MD pkl Nikkie Zarate RN RN iw Napoleon Alicia, WHEAT CLE[employer]ER-C WHEAT CLE[employer]ER-Cla1 Maritza Ornelas RN RN ld1 Corrections: (The following items were deleted from the chart) 07/06 20:25 20:02 Extremity Venous Uni [id number] ordered. EDMS EDMS
[2021-07-07 00:21] VITALS: TEMP 97.9
[2021-07-07 00:27] VITALS: O2SAT 95
[2021-07-07 00:28] VITALS: BP 149/78
== END 2021-07-07 00:17 | disposition home or self-care (01) ==
LOC: ER 19:04
DX: L03.113 Cellulitis of right upper limb (principal); C34.90 Malignant neoplasm of unspecified part of unspecified bronchus or lung; C79.9 Secondary malignant neoplasm of unspecified site; I10 Essential (primary) hypertension; F17.210 Nicotine dependence, cigarettes, uncomplicated; Z20.822 Contact with and (suspected) exposure to COVID-19
CPT/HCPCS: 96365; 93005; 87040 ×2; 85025; 80048; 36415; 83735; 87205; 85610; 85379; 80076; 85652; 84484; 83880; 86140; 71045; 93971; 99284; 96366; U0003; J3370; J7050

== ENCOUNTER 2021-07-19 05:35 | Emergency (ER) | payer OTHER ==
--- OUTSIDE RECORDS SUMMARY | 2021-07-19 05:38 | XMS REPORT | Clinical Summary ---
:1955 Author Organization [facility] MD [facility] Address [address] [place] [address] Care Team Providers Name Role Phone Unavailable Primary Care Provider Unavailable Allergies Not on File Medications Not on file Active Problems Not on file Encounters Date Type Specialty Care Team Description 07/16/2021 Travel after 07/19/2020 Social History Tobacco Use Types Packs/Day Years Used Date Never Assessed Sex Assigned at Date Recorded Not on file COVID-19 Exposure Response Date Recorded In the last month, have you been in contact with No / Unsure 07/16/2021 8:26 AM [employer] someone who was confirmed or suspected to have Coronavirus / COVID-19? Last Filed Vital Signs Not on file Plan of Treatment Not on file Results Not on fileafter 07/19/2020 Insurance Payer Benefit Plan / Subscriber ID Effective Phone Address T ype Group Dates [place] [id number] 2021-Pres [address] Medicaid [employer]ITION[employer] ent [id number] [place] [address]
--- OUTSIDE RECORDS SUMMARY | 2021-07-19 05:40 | XMS REPORT | Continuity of Care Document ---
:1955 Author Organization [facility] t Address [address] [place] [address] Care Team Providers Name Role Phone PCP, DOES NOT HAVE A Primary Care Physician Unavailable Jennifer MORRIS Attending Clinician Unavailable YELENA FLETCHER Attending Clinician Unavailable Belkis PEREZ Attending Clinician Unavailable Belkis Mcpherson Attending Clinician Uday RAZO Attending Clinician Unavailable Uday Razo MD Attending Clinician Doctor Unassigned, Name Attending Clinician Unavailable NAHOMI MARTE Attending Clinician Unavailable RAJEEV PEREZ Attending Clinician Unavailable LINDA Attending Clinician Unavailable YOGESH Attending Clinician Unavailable Darren Jewell Attending Clinician Belkis Perez MD Attending Clinician Belkis PEREZ JR Attending Clinician Unavailable HUA NERI Attending Clinician Unavailable Attending Clinician Unavailable JEEVAN FINN Attending Clinician Unavailable HE KAYE Attending Clinician Unavailable Darren CARBAJAL Attending Clinician Unavailable PEPE Attending Clinician Unavailable SAMUEL Attending Clinician Unavailable Uday RAZO Admitting Clinician Unavailable LINDA Admitting Clinician Unavailable Admitting Clinician Unavailable RAVEN, R Admitting Clinician Unavailable PEPE Admitting Clinician Unavailable Payers Payer Name Policy Policy Number Effective Expiration Source Type Date Date MEDICAID [place] [id number] 2021 MD Benita membreno [place] 00:00:00 TRADITIONAL STAR PLUS [id number] 2021-Pr [id number], [place] [address]icaid [place] [id number] 2020 00:00:00 Problems Condition Condition Condition Status Onset Resolution Last Treating Co mments Source Name Details Category Date Date Treatment Clinician Date Back pain Back pain Disease Active 2020-0 Uni vers 1-08 ity of 00:00: [place] 00 Medical Branch Coronary Coronary Disease Active 2020-0 Unive rs artery artery 1-08 ity of disease disease 00:00: [place] involving involving 00 Medi [place]ela [place] coronary coronary artery of artery of [place] heart with heart with unstable unstable angina angina pectoris pectoris Hypertensi Hypertensi Disease Active 2020-0 U nivers ve ve 1-08 [place] emergency [place] Essential Essential Disease Active 2020-0 Uni vers hypertensi hypertensi 1-08 it y of on on 00:00: [place] 00 Medical Branch Cigarette Cigarette Disease Active 2020-0 Uni vers smoker smoker 1-08 ity of 00:00: [place] 00 Medical Branch Hypokalemi Hypokalemi Disease Active 2020-0 U nivers a a 1-08 ity of 00:00: [place] 00 Medical Branch COPD COPD Disease Active 2020-0 Univers (chronic (chronic 1-08 ity of obstructiv [place]iv [place] Medical pulmonary pulmonary Bran ch disease) disease) NSTEMI NSTEMI Disease Active 2020-0 Univers (non-ST (non-ST 1-07 ity of elevated elevated 00:00: [place] myocardial myocardial 00 Me dical infarction infarction [...] Heart [id number] d ity of disease disease [place] [facility] Allergies, Adverse Reactions, Alerts Allergy Allergy Status Severity Reaction(s) Onset Inactive Treating Comm ents Source Name Type Date Date Clinician NO KNOWN Drug Active Univers ALLERGIE Class ity of S [facility] [place] Social History Social Habit Start Date Stop Date Quantity Comments Source History of Cigarette Smoker Universi ty of tobacco use [facility] [place] Exposure to Not sure MD Evans SARS-CoV-2 (event) Alcohol intake 2021-07-12 2021-07-12 Current drinker Unive rsity of 00:00:00 00:00:00 of alcohol [facility] (finding) [place] Tobacco use and 2019-07-19 2019-07-19 Never used Universit y of exposure 00:00:00 00:00:00 [facility] [place] Sex Ass[birth year] At [birth year] MD Bowman on 00:00:00 00:00:00 Smoking Status Start Date Stop Date Source Current every day smoker 2019-07-19 00:00:00 Uni versity of [facility] [place] Medications Ordered Filled Start Stop Current Ordering Indication Dosage Frequency Signature Comments Components Source Medication Medication Date Date Medication? Clinician (SIG) Name Name NaCl 0.9% No 500mL at 999 Univ ers (NS) bolus 07-13 mL/hr, 500 it y of infusion 05:15: 05:40 mL, IV [place] 500 mL 00 :00 Infusion, Medical ONCE, 1 Branch dose, On 07/12/21 at 2315, JUAN M amLODIPine 2020-07 Yes [id number] 10mg Take 1 Univers 10 mg 2-10 tablet by ity of tablet 00:00: mouth at [place] [address] bedtime. Medical Branch clopidogreL 2020-07 Yes [id number] 75mg Take 1 Univers (PLAVIX) 75 2-10 tablet by ity of mg tablet 00:00: mouth [place] 00 daily. Medical Branch lisinopriL 2020-07 Yes [id number] 40mg Take 2 Univers 20 mg 2-10 tablets by ity of tablet 00:00: mouth at [place] [address] bedtime. Medical Branch carvediloL 2020-07 Yes [id number] 6.25mg Take 1 Univers 6.25 mg 2-10 tablet by ity of tablet 00:00: mouth 2 [place] (two) Medical times Branch daily with meals. amLODIPine 2020-07 Yes [id number] 10mg Take 1 Univers 10 mg 2-10 tablet by ity of tablet 00:00: mouth at [place] [address] bedtime. Medical Branch clopidogreL 2020-07 Yes [id number] 75mg Take 1 Univers (PLAVIX) 75 2-10 tablet by ity of mg tablet 00:00: mouth [place] daily. Medical Branch lisinopriL 2020-07 Yes [id number] 40mg Take 2 Univers 20 mg 2-10 tablets by ity of tablet 00:00: mouth at [place] [address] bedtime. Medical Branch carvediloL 2020-07 Yes [id number] 6.25mg Take 1 Univers 6.25 mg 2-10 tablet by ity of tablet 00:00: mouth 2 [place] (two) Medical times [place] daily with meals. lisinopriL Yes 10mg Take 10 mg U nivers 10 mg 9-28 by mouth ity of tablet 14:16: daily. [address] Branch atorvastati Yes 10mg Take 10 mg Univers n 10 mg 9-28 by mouth ity of tablet 14:16: at [place] [address] bedtime. [facility] Branch aspirin Yes 81mg Take 81 mg Univ ers (ADULT LOW 9-28 by mouth ity o f DOSE 14:16: daily. [place] ASPIRIN) 81 21 [facility] Branch tablet carvedilol Yes 10mg Take 10 mg U nivers 10 mg 24 hr 9-28 by mouth ity of capsule 14:16: daily. [address] Branch amLODIPine Yes 10mg Take 10 mg U nivers 10 mg 9-28 by mouth ity of tablet 14:16: daily. [address] Branch lisinopriL Yes 10mg Take 10 mg U nivers 10 mg 9-28 by mouth ity of tablet 14:16: daily. [address] Branch atorvastati Yes 10mg Take 10 mg Univers n 10 mg 9-28 by mouth ity of tablet 14:16: at [place] [address] bedtime. [facility] Branch aspirin Yes 81mg Take 81 mg Univ ers (ADULT LOW 9-28 by mouth ity o f DOSE 14:16: daily. [place] ASPIRIN) 81 21 Medical mg EC Branch tablet carvedilol 0 Yes 10mg Take 10 mg U nivers 10 mg 24 hr 9-28 by mouth ity of capsule 14:16: daily. [place] [address] Medical Branch amLODIPine 0 Yes 10mg Take 10 mg U nivers 10 mg 9-28 by mouth ity of tablet 14:16: daily. [place] [address] Medical Branch lisinopriL 2020-0 Yes 10mg Take 10 mg U nivers 10 mg 9-28 by mouth ity of tablet 14:16: daily. [place] [address] Medical Branch atorvastati 0 Yes 10mg Take 10 mg Univers n 10 mg 9-28 by mouth ity of tablet 14:16: at [place] [address] bedtime. Medical Branch aspirin 2020-0 Yes 81mg Take 81 mg Univ ers (ADULT LOW 9-28 by mouth ity o f DOSE 14:16: daily. [place] ASPIRIN) 81 21 Medical mg EC Branch tablet carvedilol 0 Yes 10mg Take 10 mg U nivers 10 mg 24 hr 9-28 by mouth ity of capsule 14:16: daily. [place] [address] Medical Branch amLODIPine 0 Yes 10mg Take 10 mg U nivers 10 mg 9-28 by mouth ity of tablet 14:16: daily. [place] [address] Medical Branch lisinopriL 0 Yes 10mg Take 10 mg U nivers 10 mg 9-28 by mouth ity of tablet 14:16: daily. [place] [address] Medical Branch atorvastati 0 Yes 10mg Take 10 mg Univers n 10 mg 9-28 by mouth ity of tablet 14:16: at [place] [address] bedtime. Medical Branch aspirin 2020-0 Yes 81mg Take 81 mg Univ ers (ADULT LOW 9-28 by mouth ity o f DOSE 14:16: daily. [place] ASPIRIN) 81 21 Medical mg EC Branch tablet carvedilol 2020-0 Yes 10mg Take 10 mg U nivers 10 mg 24 hr 9-28 by mouth ity of capsule 14:16: daily. [place] [address] Medical Branch amLODIPine 2020-0 Yes 10mg Take 10 mg U nivers 10 mg 9-28 by mouth ity of tablet 14:16: daily. [place] [address] Medical Branch clindamycin 2020-0 2020- No [id number] 300mg Take 1 Univers 300 mg 9-28 04-19 capsule by ity of capsule 00:00: 04:59 mouth 4 [place] 00 :00 (four) Medical times Branch daily for 10 days. acetaminoph 2021-0 Yes [id number] 1{tbl} Take 1 Un ginette en-codeine 9-23 tablet by ity of 300-30 mg 00:00: mouth [place] tablet 00 every 6 Medical (six) Branch hours as needed for Pain (scale 4-6). Indication s: acute pain, right 2nd toe pain, PAD acetaminoph 2021-0 Yes [id number] 1{tbl} Take 1 Un ginette en-codeine 9-23 tablet by ity of 300-30 mg 00:00: mouth [place] tablet 00 every 6 Medical (six) Branch hours as needed for Pain (scale 4-6). Indication s: acute pain, right 2nd toe pain, PAD acetaminoph 2021-0 Yes [id number] 1{tbl} Take 1 Un ginette en-codeine 9-23 tablet by ity of 300-30 mg 00:00: mouth [place] tablet 00 every 6 Medical (six) Branch hours as needed for Pain (scale 4-6). Indication s: acute pain, right 2nd toe pain, PAD acetaminoph 2021-0 Yes [id number] 1{tbl} Take 1 Un ginette en-codeine 9-23 tablet by ity of 300-30 mg 00:00: mouth [place] tablet 00 every 6 Medical (six) Branch hours as needed for Pain (scale 4-6). Indication s: acute pain, right 2nd toe pain, PAD cilostazoL 2021-0 Yes [id number] 100mg Take 1 Univers 100 mg 9-15 tablet by ity of tablet 00:00: mouth 2 00 (two) Medical times Branch daily. clopidogreL 2021-0 Yes [id number] 75mg Take 1 Univers (PLAVIX) 75 9-15 tablet by ity of mg tablet 00:00: mouth [place] 00 daily. Medical Branch cilostazoL 2021-0 Yes [id number] 100mg Take 1 Univers 100 mg 9-15 tablet by ity of tablet 00:00: mouth 2 [place] 00 (two) Medical times Branch daily. clopidogreL 2021-0 Yes [id number] 75mg Take 1 Univers (PLAVIX) 75 9-15 tablet by ity of mg tablet 00:00: mouth [place] 00 daily. Medical Branch cilostazoL Yes [id number] 100mg Take 1 Univers 100 mg 9-15 tablet by ity of tablet 00:00: mouth 2 [place] (two) Medical times [place] daily. clopidogreL Yes [id number] 75mg Take 1 Univers (PLAVIX) 75 9-15 tablet by ity of mg tablet 00:00: mouth [place] 00 daily. Medical Branch cilostazoL Yes [id number] 100mg Take 1 Univers 100 mg 9-15 tablet by ity of tablet 00:00: mouth 2 [place] (two) Medical times [place] daily. clopidogreL Yes [id number] 75mg Take 1 Univers (PLAVIX) 75 9-15 tablet by ity of mg tablet 00:00: mouth [place] 00 daily. Medical Branch Simvastatin Simvastatin 2017-07 Yes ONOFRE LEO TAKE 1 Univers 20 MG Oral 20 MG Oral 1-07 D.O. TABLET BY ity of Tablet Tablet 00:00: MOUTH [place] 00 DAILY Physici ans Aspirin 81 Aspirin 81 Yes Uni vers MG TABS MG TABS ity of [place] Physici ans Carvedilol Carvedilol Yes ONOFRE LEO Q0.5D TAKE 1 Univers 12.5 MG 12.5 MG D.O. TABLET ity of Oral Tablet Oral Tablet TWICE [place] DAILY WITH Physici MEALS. ans Plavix 75 Plavix 75 Yes TAKE 1 Uni vers MG Oral MG Oral TABLET BY ity of Tablet Tablet MOUTH [place] DAILY Physici ans Isosorbide Isosorbide Yes TAKE 1 U nivers Mononitrate Mononitrate TABLET BY ity of ER 60 MG ER 60 MG MOUTH [place] Oral Tablet Oral Tablet EVERY DAY Physici Extended Extended ans Release 24 Release 24 Hour Hour Lisinopril Lisinopril Yes 2 QD TAKE 2 U nivers 20 MG Oral 20 MG Oral TABLET i ty of Tablet Tablet DAILY [place] Physici ans Nitroglycer Nitroglycer Yes U nivers in 0.4 MG in 0.4 MG ity o f Sublingual Sublingual [place] as Tablet Tablet Physici Sublingual Sublingual ans Vital Signs Vital Name Observation Time Observation Value Comments Source Systolic blood 2021-07-13 149 mm[Hg] University of pressure 05:00:00 [facility] [place] Diastolic blood 2021-07-13 88 mm[Hg] University o f pressure 05:00:00 [facility] [place] Heart rate 2021-07-13 98 /min University of 05:00:00 [facility] [place] Respiratory rate 2021-07-13 21 /min University of 05:00:00 [facility] [place] Oxygen saturation 2021-07-13 95 /min University of in Arterial blood 05:00:[address] [facility] micaela by Pulse oximetry Branch Body temperature 2021-07-13 36.89 Jamilah University of 03:29:00 [facility] [place] Body height 2021-07-13 177.8 cm University of 03:29:00 [facility] [place] Body weight 2021-07-13 61.236 kg University of 03:29:00 [facility] [place] BMI 2021-07-13 19.37 kg/m2 University of 03:29:00 [facility] [place] Systolic blood 2021-06-21 148 mm[Hg] University of pressure 05:00:00 [facility] [place] Diastolic blood 2021-06-21 69 mm[Hg] University o f pressure 05:00:00 [facility] [place] Heart rate 2021-06-21 81 /min University of 05:00:00 [facility] [place] Respiratory rate 2021-06-21 21 /min University of 05:00:00 [facility] [place] Oxygen saturation 2021-06-21 93 /min University of in Arterial blood 05:00:00 [facility] by Pulse oximetry Branch Body temperature 2021-06-21 37.06 Jamilah University of 00:42:00 [facility] [place] Body weight 2021-06-21 58.514 kg University of 00:42:00 [facility] [place] BMI 2021-06-21 18.51 kg/m2 University of 00:42:00 [facility] [place] Systolic blood 2021-04-08 133 mm[Hg] University of pressure 19:16:00 [facility] Branch Diastolic blood 2021-04-08 66 mm[Hg] University o f pressure 19:16:00 [facility] [place] Heart rate 2021-04-08 52 /min University of 19:16:00 [facility] [place] Body temperature 2021-04-08 36.78 Jamilah University of 19:06:00 [facility] Branch Respiratory rate 2021-04-08 22 /min University of 19:06:00 [facility] [place] Body height 2021-04-08 177.8 cm University of 19:06:00 [facility] [place] Body weight 2021-04-08 59.875 kg University of 19:06:00 [facility] [place] BMI 2021-04-08 18.94 kg/m2 [facility] 19:06:00 [facility] [place] BP Systolic 2018-05-18 168 mm[Hg] Location: [facility] 15:46:00 Position: [place] Physician s Sitting BP Diastolic 2018-05-18 79 mm[Hg] Location: [facility] 15:46:00 Position: [place] Physician s Sitting Weight 2018-05-18 137.125 [lb_av] [place] o f 15:46:00 [place] [facility] Heart Rate 2018-05-18 64 /min [facility] 15:46:00 [place] [facility]ician s Respiration Rate 2018-05-18 16 /min [facility] 15:46:00 [place] Physician s Procedures Procedure Date / Time Performed Performing Clinician [facility] e US DUPLEX VENOUS ARM 2021-07-13 05:47:00 Tim Perez [facility] RIGHT - BY VASCULAR Medical Bran ch LAB XR CHEST 1 VW 2021-07-13 04:30:34 Tim Perez [facility] LIPASE 2021-07-13 04:27:00 Tim Perez [facility] TROPONIN I 2021-07-13 04:27:00 Tim Perez [facility] COMP. METABOLIC PANEL 2021-07-13 04:27:00 Tim Perez [facility] ([id number]) [facility] CBC WITH DIFF 2021-07-13 04:27:00 Tim Perez [facility] COVID-19 (ID NOW 2021-07-13 04:27:00 Tim Perez [facility] RAPID TESTING) [facility] CONSENT/REFUSAL FOR 2021-07-13 03:16:08 Doctor Unassigned, No Un [facility] DIAGNOSIS AND Name [facility] TREATMENT EKG-12 LEAD 2021-06-21 05:18:46 Veronica Razo [facility] TROPONIN I 2021-06-21 03:53:00 Veronica Razo [facility] XR CHEST 1 VW 2021-06-21 03:02:45 Veronica Razo [facility] TROPONIN I 2021-06-21 01:44:00 Veronica Razo [facility] COMP. METABOLIC PANEL 2021-06-21 01:44:00 Veronica Razo [facility] ([id number]) [facility] CBC WITH DIFF 2021-06-21 01:44:00 Veronica Razo [facility] CONSENT/REFUSAL FOR 2021-06-21 00:22:15 Doctor Unassigned, No Un [facility] DIAGNOSIS AND Name Medical Branch TREATMENT Encounters Start End Encounter Admission Attending Care Care Encounter Source Date/Time Date/Time Type Type Clinicians Facility Department ID 2019-10-02 Outpatient ARTURO [facility] [id number] M HSW 09:24:10 TANA 2019-07-20 Inpatient [facility] [id number] [facility] W 21:22:00 2021-07-13 2021-07-13 Emergency E JUSTINE [facility] [id number] [facility] 18:17:00 22:54:00 [place] 2021-07-12 2021-07-13 Emergency X ANA, [facility] ERT [id number] Univers 21:32:00 00:25:00 TIM [facility] 2021-07-12 2021-07-13 Emergency [facility] [id number] Univers 21:32:00 00:25:00 Tim GRAY [id number] i ty [facility] [id number] [facility] [id number] [address] 2021-06-20 2021-06-20 Emergency X [facility] ERT [id number] Univers 18:45:00 23:35:[facility] 2021-06-20 2021-06-20 Emergency [facility] [id number] Univers 18:45:00 23:35:00 [id number] [facility] [id number] [facility] [id number] [address] 2021-06-20 2021-06-20 Orders Doctor LEMUS [id number] Univers 00:00:00 00:00:00 Only Unassigned, HELDER [id number] ity of [place] [facility] 4.2.7.2.686 [place] as [id number] [facility] 009 Branch 2021-06-15 2021-06-15 Emergency [facility] MED [id number] [place] 00:00:00 22:23:00 Health 2021-06-11 2021-06-11 Emergency E ROSANNA, [facility] 7504 [facility] 22:02:00 23:00:00 OTF 2021-06-11 2021-06-11 Emergency E ANA, [facility] [id number] [facility] 20:40:00 21:30:00 YELITZA 2021-04-15 2021-04-16 Inpatient U LINDA, [facility] CAR [id number] [facility] 07:41:00 10:31:00 ANASTASIIA 2021-04-14 2021-04-14 Outpatient [facility] [id number] Univers 11:30:00 11:30:00 VARGAS [id number] jeanie o [facility] 2021-04-14 2021-04-14 Outpatient R [facility] [id number] Univers 11:30:00 11:30:00 VARGAS ware [facility] 2021-04-08 2021-04-08 Office Marco Rubio R UNIVERSIT [id number]. [id number] Univers 13:57:37 14:45:38 Visit Parish Perez [facility] [id number] ity of [facility] 4.2.7.2.686 [place] [id number] [facility] 205 Branch 2021-04-08 2021-04-08 Outpatient R [facility] [id number] Univers 10:00:00 14:45:38 PARISH ware [facility] 2021-04-03 2021-04-03 Emergency X DARON [facility] ERT [id number] Univers 19:55:00 23:34:00 ARNOL ware o [facility] 2021-04-02 2021-04-02 Emergency X SHAMAR [facility] ERT [id number] Univers 06:00:00 06:47:00 VERONICA [facility] 2021-03-26 2021-03-26 Emergency X , [facility] ERT [id number] Univers 07:48:00 11:34:00 AUBREE [facility] 2021-03-18 2021-03-18 Emergency E AAKASH, [facility] [id number] [facility] 06:11:00 11:53:00 DARIUS 2021-03-15 2021-03-15 Emergency E VARGAS, [facility] 7501 [facility] 11:41:00 17:07:00 LORETTA 2020-10-29 2020-10-30 Emergency X CARBAJAL, [facility] ERT [id number] Univers 20:59:00 00:18:00 CORWIN [facility] 2019-07-18 2019-07-20 [facility] [id number] Univers 21:00:51 08:23:00 SAMMI [facility] 2018-05-18 2018-05-18 XIMENA Agrawal [id number] Univers 15:00:00 15:00:00 EDELMIRA [facility] of PRAKASH, M.D. Specialty [place] [facility] Physici ans Results Test Description Test Time Test Comments Results Result Comments Source TROPONIN I 2021-07-13 05:01:02 Test Item Value Reference Range Interpretation Comme nts TROPONIN I (test code = 0.005 ng/mL See_Comment [Au tomated message] The [id number]) system which ge nerated this result tra [...] biotin. Lab Interpretation Normal (test code = 99826-2) [facility]. METABOLIC PANEL ([id number])2021-07-13 04:52:25 Test Item Value Reference Range Interpretation Comments NA (test code = 129 mmol/L 135-145 L 8183846825) K (test code = 4.6 mmol/L 3.5-5.0 5729529526) CL (test code = 95 mmol/L 98-108 L 9527721391) CO2 TOTAL (test code = 27 mmol/L 23-31 8073314957) AGAP (test code = 2-16 1506411740) BUN (test code = 20 mg/dL 7-23 0110583043) GLUCOSE (test code = 120 mg/dL 70-110 H 6442667674) CREATININE (test code = 0.89 mg/dL 0.60-1.25 4590761376) TOTAL BILI (test code = 0.5 mg/dL 0.1-1.8 9511574189) CALCIUM (test code = 8.5 mg/dL 8.6-10.6 L 7607144666) T PROTEIN (test code = 7.2 g/dL 6.3-8.2 1616903537) ALBUMIN (test code = 3.8 g/dL 3.5-5.0 0768518426) ALK PHOS (test code = 84 U/L 34-122 6042505581) ALTv (test code = 21 U/L 5-50 1742-6) AST(SGOT) (test code = 39 U/L 13-40 6647221064) eGFR (test code = mL/min/1.73m2 3780501529) GEOVANNA (test code = GEOVANNA) Association of [...] tests). Lab Interpretation Abnormal (test code = 64314-0) [facility] Test Item Value Reference Range Interpretation Comments LIPASE (test code = 0933042031) 66 U/L 0-220 Lab Interpretation (test code = Normal 01706-1) [facility] WITH [id number] 04:35:25 Test Item Value Reference Range Interpretation Comments WBC (test code = See_Comment H [Automated 90-2) message] The sy stem which generated this result transmitted reference range : 4.20 - 10.70 10*3/?L. The reference range was not used to interpret this result as normal/abnormal . RBC (test code = See_Comment L [Automated 429-8) message] The sy stem which generated this result transmitted reference range : 4.26 - 5.52 10*6/?L. The reference range was not used to interpret this result as normal/abnormal . HGB (test code = 12.2 g/dL 12.2-16.4 718-7) HCT (test code = 37.0 % 38.4-49.3 L 4544-3) MCV (test code = 88.9 fL 81.7-95.6 787-2) MCH (test code = 29.3 pg 26.1-32.7 785-6) MCHC (test code = 33.0 g/dL 31.2-35.0 786-4) RDW-SD (test code = 44.6 fL 38.5-51.6 79482-1) RDW-CV (test code = 13.8 % 12.1-15.4 788-0) PLT (test code = See_Comment H [Automated 777-3) message] The sy stem which generated this result transmitted reference range : 150 - 328 10*3/ ?L. The reference r tomeka was not used to interpret this result as normal/abnormal . MPV (test code = 8.9 fL 9.8-13.0 L 98185-7) NRBC/100 WBC (test See_Comment [Automat ed code = 2463398305) message] The system which generated this result transmitted reference range : 0.0 - 10.0 /100 WBCs. The refer ence range was not u sed to interpret th is result as normal/abnormal . NRBC x10^3 (test code <0.01 See_Comment [Auto mated = 1909096792) message] The s ystem which generated this result transmitted reference range : 10*3/?L. The reference range was not used to interpret this result as normal/abnormal . GRAN MAT (NEUT) % 83.8 % (test code = 770-8) IMM GRAN % (test code 0.40 % = 2724290974) LYMPH % (test code = 7.1 % 736-9) MONO % (test code = 7.1 % 5905-5) EOS % (test code = 1.1 % 713-8) BASO % (test code = 0.5 % 706-2) GRAN MAT x10^3(ANC) 9.50 10*3/uL 1.99-6.95 H (test code = 7500655661) IMM GRAN x10^3 (test 0.05 10*3/uL 0.00-0.06 code = 4873388478) LYMPH x10^3 (test code 0.80 10*3/uL 1.09-3.23 L = 731-0) MONO x10^3 (test code 0.80 10*3/uL 0.36-1.02 = 742-7) EOS x10^3 (test code = 0.13 10*3/uL 0.06-0.53 711-2) BASO x10^3 (test code 0.06 10*3/uL 0.01-0.09 = 704-7) Lab Interpretation Abnormal (test code = 85333-4) [facility] [id number] 04:22:33 Test Item Value Reference Interpretation Comments Range TROPONIN I (test 0.003 ng/mL See_Comment [Automated code = 1701281744) message] The system which generated this result [...] biotin. Lab Interpretation Normal (test code = 49032-0) [facility] [place] [facility] [facility] [id number] 02:26:43 Test Item Value Reference Interpretation Comments Range TROPONIN I (test 0.004 ng/mL See_Comment [Automated code = 1494523120) message] The system which generated this result [...] biotin. Lab Interpretation Normal (test code = 70974-6) [facility]. METABOLIC PANEL ([id number])2021-06-21 02:15:20 Test Item Value Reference Range Interpretation Comments NA (test code = 131 mmol/L 135-145 L [id number]) K (test code = 4.4 mmol/L 3.5-5.0 7077313605) CL (test code = 96 mmol/L 98-108 L 0576360183) CO2 TOTAL (test code = 27 mmol/L 23-31 0873191555) AGAP (test code = 2-16 8618453153) BUN (test code = 19 mg/dL 7-23 3423005976) GLUCOSE (test code = 106 mg/dL 70-110 0946361752) CREATININE (test code = 1.12 mg/dL 0.60-1.25 7921468056) TOTAL BILI (test code = 0.3 mg/dL 0.1-1.4 3955700904) CALCIUM (test code = 9.0 mg/dL 8.6-10.6 1745126860) T PROTEIN (test code = 6.8 g/dL 6.3-8.2 0449651513) ALBUMIN (test code = 3.6 g/dL 3.5-5.0 4358632412) ALK PHOS (test code = 79 U/L 34-122 3825240982) ALTv (test code = 14 U/L 5-50 1742-6) AST(SGOT) (test code = 31 U/L 13-40 2017319676) eGFR (test code = mL/min/1.73m2 5160995892) GEOVANNA (test code = GEOVANNA) Association of [...] tests). Lab Interpretation Abnormal (test code = 49076-1) [facility] WITH [id number] 02:06:01 Test Item Value Reference Range Interpretation Comments WBC (test code = See_Comment [Automated 2790-2) message] The sy stem which generated this result transmitted reference range : 4.20 - 10.70 10*3/?L. The reference range was not used to interpret this result as normal/abnormal . RBC (test code = See_Comment L [Automated 149-8) message] The sy stem which generated this [...] RDW-SD (test code = 45.6 fL 38.5-51.6 96194-7) RDW-CV (test code = 14.0 % 12.1-15.4 788-0) PLT (test code = See_Comment [Automated 767-3) message] The sy stem which generated this result transmitted reference range : 150 - 328 10*3/ ?L. The reference r tomeka was not used to interpret this result as normal/abnormal . MPV (test code = 9.0 fL 9.8-13.0 L 78354-9) NRBC/100 WBC (test See_Comment [Automat ed code = 5816066763) message] The system which generated this result transmitted reference range : 0.0 - 10.0 /100 WBCs. The refer ence range was not u sed to interpret th is result as normal/abnormal . NRBC x10^3 (test code <0.01 See_Comment [Auto mated = 6657941063) message] The s ystem which generated this result transmitted reference range : 10*3/?L. The reference range was not used to interpret this result as normal/abnormal . GRAN MAT (NEUT) % 75.7 % (test code = 770-8) IMM GRAN % (test code 0.40 % = 5072469691) LYMPH % (test code = 13.0 % 736-9) MONO % (test code = 7.8 % 5905-5) EOS % (test code = 2.6 % 713-8) BASO % (test code = 0.5 % 706-2) GRAN MAT x10^3(ANC) 5.63 10*3/uL 1.99-6.95 (test code = 9458294996) IMM GRAN x10^3 (test 0.03 10*3/uL 0.00-0.06 code = 5056392252) LYMPH x10^3 (test code 0.97 10*3/uL 1.09-3.23 L = 731-0) MONO x10^3 (test code 0.58 10*3/uL 0.36-1.02 = 742-7) EOS x10^3 (test code = 0.19 10*3/uL 0.06-0.53 711-2) BASO x10^3 (test code 0.04 10*3/uL 0.01-0.09 = 704-7) Lab Interpretation Abnormal (test code = 04127-0) [facility]"
[2021-07-19] MEDS ORDERED: NA CHLORIDE 0.9% 500 ML ONE (06:24)
[2021-07-19 06:25] LABS: Absolute Lymphocytes (CBC) 0.3 K/uL (0.7-4.9); Hematocrit 39.6 % (39.6-49.0); MPV 7.2 fL (7.6-11.3); RBC Red Blood Cell Count 4.53 M/uL (4.33-5.43)
[2021-07-19 06:28] LABS: Protime INR 1.09
[2021-07-19 06:44] LABS: ALT/SGPT 27 U/L (12-78); AST/SGOT 27 U/L (15-37); Albumin 2.5 g/dL (3.4-5.0); Alkaline Phosphatase 84 U/L (45-117); BUN Blood Urea Nitrogen 22 mg/dL (7-18); Bicarbonate 26 mmol/L (21-32); Bilirubin Direct 0.1 mg/dL (0-0.2); Bilirubin Total 0.4 mg/dL (0.2-1.0); Glucose Level 129 mg/dL (74-106); Magnesium 1.9 mg/dL (1.8-2.4); NT PRO-BNP 3596 pg/mL (<125); Potassium 4.8 mmol/L (3.5-5.1); Sodium Level 132 mmol/L (136-145); Troponin (Emerg Dept Use Only) < 0.02 ng/mL (0.0-0.045)
[2021-07-19 08:21] LABS: Platelet Estimate ADEQ; White Blood Cell Scan OK (OK)
[2021-07-19 08:22] LABS: Blood Morphology Comment NOT SEEN (NOT SEEN)
[2021-07-19] MEDS ORDERED: NA CHLORIDE 0.9% 1,000 ML ONE (09:52)
--- NOTE | 2021-07-19 11:21 | EDPHYS ---
Physician Documentation [facility] Name: Jeffy William Age: 65 yrs Sex: Male : 1955 Arrival Date: 07/19/2021 Time: 05:40 Bed 18 Private MD: ED Physician Deep Roth HPI: 07/19 06:16 This 65 yrs old Male presents to ER via Wheelchair with complaints of Lightheaded, kdr Feels like passing out when standing up. 06:16 The patient has been experiencing shortness of breath on exertion. Family states that kdr the patient is unable to walk very far without becoming short of breath. This has been ongoing but worsening over the past few weeks. Patient was recently diagnosed with stage IV lung cancer. He has yet to begin any treatment. He is being evaluated by Dr. Perez. Patient was at [place] several days ago for evaluation. He was concerned about his right upper extremity swelling. According to the patient they evaluated for possible clot but none was found. He was told that the upper extremity swelling was secondary to his lung cancer.. Onset: The symptoms/episode began/occurred 3 week(s) ago. Severity of symptoms: At their worst the symptoms were moderate incapacitating in the emergency department the symptoms are unchanged. The patient has not experienced similar symptoms in the past. The patient has been recently seen by a physician: the patient's primary care provider. Patient presents with his daughter. She indicated that over the past few weeks since he has been diagnosed with the lung cancer, he has had these spells of shortness of breath with exertion. Patient indicates that it if he stops and kneels down or squats, his shortness of breath resolves. He is unable to walk a bit further. He denies any other COVID symptoms at this time. He is not toxic appearing at this time nor does he appear in any eminent threat of immediate demise. Historical: - Allergies: 06:04 No Known Allergies; bb - PMHx: 06:04 Hypertensive disorder; Lung Cancer; Myocardial infarction; bb - PSHx: 06:04 femoral artery bypass; bb - Immunization history:: Client reports having NOT received the Covid vaccine. - Social history:: Smoking status: Patient reports the use of cigarette tobacco products, smokes one-half pack cigarettes per day, Patient/guardian denies using alcohol, street drugs. ROS: 06:16 Constitutional: Negative for fever, chills, and weight loss, Eyes: Negative for injury, kdr pain, redness, and discharge, Neck: Negative for injury, pain, and swelling, Cardiovascular: Negative for chest pain, palpitations, and edema, Abdomen/GI: Negative for abdominal pain, nausea, vomiting, diarrhea, and constipation, Back: Negative for injury and pain, : Negative for injury, bleeding, discharge, and swelling, MS/Extremity: Negative for injury and deformity, Skin: Negative for injury, rash, and discoloration, Neuro: Negative for headache, weakness, numbness, tingling, and seizure activity. Psych: Negative for depression, anxiety, suicide ideation, homicidal ideation, and hallucinations, Allergy/Immunology: Negative for hives, rash, and allergies, Endocrine: Negative for neck swelling, polydipsia, polyuria, polyphagia, and marked weight changes, Hematologic/Lymphatic: Negative for swollen nodes, abnormal bleeding, and unusual bruising. 06:16 Respiratory: Positive for cough, with no reported sputum, dyspnea on exertion, shortness of breath, on exertion. Negative for hemoptysis, orthopnea, pleurisy, sputum production. 06:16 MS/extremity: Positive for swelling, Patient has chronic swelling of both feet secondary to prior stenting. Exam: 06:16 Constitutional: This is a well developed, well nourished patient who is awake, alert, kdr and in no acute distress. Head/Face: Normocephalic, atraumatic. Eyes: Pupils equal round and reactive to light, extra-ocular motions intact. Lids and lashes normal. Conjunctiva and sclera are non-icteric and not injected. Cornea within normal limits. Periorbital areas with no swelling, redness, or edema. Neck: Trachea midline, no thyromegaly or masses palpated, and no cervical lymphadenopathy. Supple, full range of motion without nuchal rigidity, or vertebral point tenderness. No Meningismus. Chest/axilla: Normal chest wall appearance and motion. Nontender with no deformity. No lesions are appreciated. Cardiovascular: Regular rate and rhythm with a normal S1 and S2. No gallops, murmurs, or rubs. Normal PMI, no JVD. No pulse deficits. Abdomen/GI: Soft, non-tender, with normal bowel sounds. No distension or tympany. No guarding or rebound. No evidence of tenderness throughout. Back: No spinal tenderness. No costovertebral tenderness. Full range of motion. Skin: Warm, dry with normal turgor. Normal color with no rashes, no lesions, and no evidence of cellulitis. Neuro: Awake and alert, GCS 15, oriented to person, place, time, and situation. Cranial nerves II-XII grossly intact. Motor strength 5/5 in all extremities. Sensory grossly intact. Cerebellar exam normal. Normal gait. Psych: Awake, alert, with orientation to person, place and time. Behavior, mood, and affect are within normal limits. 06:16 Respiratory: mild respiratory distress is noted, Respirations: normal, Breath sounds: rales, wheezing: that is mild, that is moderate, is heard diffusely. Vital Signs: 06:02 BP 122 / 77; Pulse 102; Resp 22 S; Temp 97.7(O); Pulse Ox 97% on R/A; Weight 63.05 kg bb (R); Height 5 ft. 10 in. (177.80 cm) (R); Pain 0/10; 06:25 BP 101 / 68 Supine; Pulse 98; Resp 24; Pulse Ox 95% 3 lpm ; st1 06:30 BP 95 / 69; Pulse 99; Resp 22; Pulse Ox 100% on 3 lpm NC; st1 06:35 BP 86 / 72 Standing; Pulse 100; Resp 22; Pulse Ox 90% on 3 lpm NC; st1 07:04 BP 98 / 9; Pulse 92; Resp 16; Pulse Ox 94% ; mr2 08:11 BP 106 / 67; Pulse 90; Resp 18; Pulse Ox 96% on R/A; mr2 10:37 BP 158 / 120; Pulse 94; Resp 18; Pulse Ox 96% on 2 lpm NC; patel 11:31 BP 113 / 83; Pulse 92; Resp 18; Pulse Ox 95% on 2 lpm NC; patel 06:02 Body Mass Index 19.94 (63.05 kg, 177.80 cm) MDM: 06:16 Data reviewed: vital signs, nurses notes, lab test result(s), radiologic studies. kdr Counseling: I had a detailed discussion with the patient and/or guardian regarding: the historical points, exam findings, and any diagnostic results supporting the discharge/admit diagnosis, lab results, radiology results. 10:37 Patient medically screened. ma2 11:17 Differential Diagnosis Received signout from Dr. Baker about this patient, as ma2 syncope, pending work-up and disposition. On my evaluation, patient received 1 L IV fluid, blood work is unremarkable, however he had positive orthostatics, when he stood up systolic blood pressure went down to 84, when he lie back in the bed systolic blood pressure goes up to [address] chest PE rule out, that shows no PE, there is lung cancer which was established diagnosis in the past, there is a small right pleural effusion which has been there before. There is also pericardial effusion, EKG shows low voltage QRSs. Patient needs pericardial window, pericardial centesis, I discussed with grader meat on-call Dr. Whyte, and he advised that he is not available to do this procedure today, and he recommended transfer to [place] for higher level of care. I discussed with the patient. We will transfer to [facility], discussed and accepted by Uday Baker. Response to treatment: the patient's symptoms have markedly improved after treatment. 07/19 05:50 Order name: Basic Metabolic Panel kdr 07/19 05:50 Order name: CBC with Diff; Complete Time: 09:13 kdr 07/19 05:50 Order name: LFT's; Complete Time: 09:13 kdr 07/19 05:50 Order name: Magnesium; Complete Time: 09:13 kdr 07/19 05:50 Order name: NT PRO-BNP; Complete Time: 09:13 kdr 07/19 05:50 Order name: PT-INR; Complete Time: 09:13 kdr 07/19 05:50 Order name: Troponin (emerg Dept Use Only); Complete Time: 09:13 kdr 07/19 05:50 Order name: XRAY Chest (1 view); Complete Time: 22:01 kdr 07/19 05:50 Order name: Basic Metabolic Panel; Complete Time: 09:13 EDMS 07/19 08:21 Order name: CBC Smear Scan; Complete Time: 09:13 EDMS 07/19 08:57 Order name: SARS-COV-2 RT PCR (Document "Date of Onset" if Symptomatic) eb 07/19 08:58 Order name: SARS-COV-2 RT PCR; Complete Time: 10:39 EDMS 07/19 09:28 Order name: CT Chest For PE Angio; Complete Time: 22:01 kdr 07/19 05:50 Order name: Orthostatic Blood Pressure; Complete Time: 06:41 kdr 07/19 05:50 Order name: EKG; Complete Time: 05:51 kdr 07/19 05:50 Order name: Cardiac monitoring; Complete Time: 06:19 kdr 07/19 05:50 Order name: EKG - Nurse/Tech; Complete Time: 06:41 kdr 07/19 05:50 Order name: IV Saline Lock; Complete Time: 06:19 kdr 07/19 05:50 Order name: Labs collected and sent; Complete Time: 06:41 kdr 07/19 05:50 Order name: O2 Per Protocol; Complete Time: 06:55 kdr 07/19 05:50 Order name: O2 Sat Monitoring; Complete Time: 06:55 kdr 07/19 09:23 Order name: Diet Regular; Complete Time: 09:23 eb Administered Medications: 06:36 Drug: NS 0.9% 500 ml Route: IV; Rate: bolus; Site: left forearm; st1 07:03 Follow up: IV Status: Completed infusion mr2 11:33 Not Given (dc per MDd): NS 0.9% 1000 ml IV at 1 bolus Per protocol; 1000 mL bolus patel Disposition Summary: 07/19/21 11:20 Transfer Ordered Transfer Location: [facility] Reason: Higher level of care ma2 Condition: Stable ma2 Problem: new ma2 Symptoms: are unchanged ma2 Accepting Physician: Ace(07/19/21 13:06) patel Diagnosis - Pericardial effusion (noninflammatory) ma2 Forms: - Medication Reconciliation Form ma2 - SBAR form ma2 Signatures: Dispatcher [employer] EDMS Michael Baker MD MD kdr Symone Stark RN Deep Ding MD MD ma2 Rose Marie Quinonez RN RN ha Tingle, Shellie, RN RN st1 Adama Hope RN mr2 Corrections: (The following items were deleted from the chart) 13:06 11:20 Ace shaver patel
--- NOTE | 2021-07-19 11:21 | ER ---
Nurse's Notes [facility] Name: Jeffy William Age: 65 yrs Sex: Male : 1955 Arrival Date: 07/19/2021 Time: 05:40 Bed 18 Private MD: Diagnosis: Pericardial effusion (noninflammatory) Presentation: 07/19 06:02 Chief complaint: Patient states: he is having difficulty getting to the bathroom has to bb stop and "crouch" before being able to get there this morning had to call his daughter for help pt recently diagnosed with lung cancer. Coronavirus screen: difficulty breathing, Client presents with at least one sign or symptom that may indicate coronavirus-19. Standard/surgical mask placed on the client. Ebola Screen: No symptoms or risks identified at this time. Initial Sepsis Screen: Does the patient meet any 2 criteria? No. Patient's initial sepsis screen is negative. Does the patient have a suspected source of infection? No. Patient's initial sepsis screen is negative. Risk Assessment: Do you want to hurt yourself or someone else? Patient reports no desire to harm self or others. Onset of symptoms is unknown. 06:02 Method Of Arrival: Wheelchair bb 06:02 Acuity: GINA 2 bb Triage Assessment: 06:47 General: Behavior is calm, cooperative, appropriate for age, quiet. Pain: Denies pain. st1 Neuro:. Respiratory: Reports labored breathing while ambulating short distances. 06:49 General: Appears distressed, uncomfortable, slender, emaciated. st1 Historical: - Allergies: 06:04 No Known Allergies; bb - PMHx: 06:04 Hypertensive disorder; Lung Cancer; Myocardial infarction; bb - PSHx: 06:04 femoral artery bypass; bb - Immunization history:: Client reports having NOT received the Covid vaccine. - Social history:: Smoking status: Patient reports the use of cigarette tobacco products, smokes one-half pack cigarettes per day, Patient/guardian denies using alcohol, street drugs. Screenin:50 Abuse screen: Denies threats or abuse. Nutritional screening: No deficits noted. st1 Tuberculosis screening: No symptoms or risk factors identified. Fall Risk Fall in past 12 months (25 points). Secondary diagnosis (15 points) stage 4 lung cancer . IV access (20 points). Ambulatory Aid- None/Bed Rest/Nurse Assist (0 pts). Gait- Weak (10 pts.). Mental Status- Oriented to own ability (0 pts). Total Bradford Fall Scale indicates High Risk Score (45 or more points). Fall prevention measures have been instituted. Side Rails Up X 2 Placed Close to Nursing Station Frequent Obs/Assessments Occuring Family Present and informed to notify staff if the need to leave the bedside As available patient and family educated on Fall Prevention Program and Strategies. Exposure risk/Travel Screening: None identified. Vital Signs: 06:02 BP 122 / 77; Pulse 102; Resp 22 S; Temp 97.7(O); Pulse Ox 97% on R/A; Weight 63.05 kg bb (R); Height 5 ft. 10 in. (177.80 cm) (R); Pain 0/10; 06:25 BP 101 / 68 Supine; Pulse 98; Resp 24; Pulse Ox 95% 3 lpm ; st1 06:30 BP 95 / 69; Pulse 99; Resp 22; Pulse Ox 100% on 3 lpm NC; st1 06:35 BP 86 / 72 Standing; Pulse 100; Resp 22; Pulse Ox 90% on 3 lpm NC; st1 07:04 BP 98 / 9; Pulse 92; Resp 16; Pulse Ox 94% ; mr2 08:11 BP 106 / 67; Pulse 90; Resp 18; Pulse Ox 96% on R/A; mr2 10:37 BP 158 / 120; Pulse 94; Resp 18; Pulse Ox 96% on 2 lpm NC; patel 11:31 BP 113 / 83; Pulse 92; Resp 18; Pulse Ox 95% on 2 lpm NC; patel 06:02 Body Mass Index 19.94 (63.05 kg, 177.80 cm) bb ED Course: 05:40 Patient arrived in ED. bp1 05:48 Samantha Krishna, HOLLEY is Primary Nurse. st1 05:49 Michael Baker MD is Attending Physician. kdr 06:04 Triage completed. bb 06:04 Arm band placed on Patient placed in an exam room, on a stretcher, on property assessment monitor, bb on pulse oximetry. Family accompanied patient. 06:10 Inserted saline lock: 20 gauge in right in left antecubital area, using aseptic st1 technique. forearm, using aseptic technique. Blood collected. Oxygen administration via nasal cannula \\T\\ 3L/min Response to oxygen therapy: symptoms improved. 06:17 Basic Metabolic Panel Sent. st1 06:17 PT-INR Sent. st1 06:17 NT PRO-BNP Sent. st1 06:17 Magnesium Sent. st1 06:17 LFT's Sent. st1 06:18 CBC with Diff Sent. st1 06:45 EKG done per protocol. Performed by ED Staff. Shown to ED physician. Labs ordered per st1 protocol. Drawn by ED staff. 06:52 Patient has correct armband on for positive identification. Fall risk band placed. st1 Placed in gown. Bed in low position. Call light in reach. Side rails up X 1. Adult w/ patient. residential monitor on. Pulse ox on. NIBP on. 06:53 No provider procedures requiring assistance completed. st1 06:55 XRAY Chest (1 view) Sent. st1 07:06 XRAY Chest (1 view) In Process Unspecified. EDMS 08:32 Primary Nurse role handed off by Samantha Krishna RN eb 09:43 SARS-COV-2 RT PCR (Document "Date of Onset" if Symptomatic) Sent. patel 09:55 CT Chest For PE Angio In Process Unspecified. EDMS 10:37 Attending Physician role handed off by Michael Baker MD ma2 10:37 Deep Roth MD is Attending Physician. ma2 10:41 transfer initiated with Shannan Parnell Rn from the [facility]. eb 10:[address] Davalos the tester operator helper supervisor inspection and testing for [facility] with Dr. Roth for eb patient transfer consultation. 10:59 per Shannan Parnell Rn they will have to decline the patient in transfer due to being eb at ICU/CCU capacity. 11:00 transfer initiated with Sera from the [facility]. eb 11:15 administrative approval given by Sera Bender Rn/ patient has been accepted to [facility]/ Uday Baker has accepted the patient without conference with Dr. Roth/ report to be given to [phone]. 13:06 Patient transferred, IV remains in place. patel Administered Medications: 06:36 Drug: NS 0.9% 500 ml Route: IV; Rate: bolus; Site: left forearm; st1 07:03 Follow up: IV Status: Completed infusion mr2 11:33 Not Given (dc per MDd): NS 0.9% 1000 ml IV at 1 bolus Per protocol; 1000 mL bolus patel Outcome: 11:20 ER care complete, transfer ordered by . maMegan 13:06 Transferred to [facility]. patel 13:06 Condition: good 13:06 Instructed on the need for transfer. 13:06 Patient left the ED. patel Signatures: Dispatcher [employer] EDMS Michael Baker MD MD kdr Ballard, Brenda RN RN Deep Lee MD MD ma2 Tita Flowers Brittany bp1 Reynard, Mike RN RN mr2 Au-StagerRose Marie RN RN Samantha Krishna RN RN st1 Corrections: (The following items were deleted from the chart) 06:48 06:46 General: Appears distressed, slender, st1 st1 11:07 10:41 transfer initiated with Lachet from the [facility]. eb eb 11:33 09:48 NS 0.9% 1000 ml IV at 1 bolus in left antecubital patel patel
--- NOTE | 2021-07-19 11:25 | RAD REPORT ---
EXAM DESCRIPTION: CT - Chest For Pe Angio - 07/19/2021 9:55 am CLINICAL HISTORY: Chest pain. CHEST PAIN COMPARISON: Chest For Pe Angio dated 04/15/2021 TECHNIQUE: CT angiogram of the pulmonary arteries was performed with MIP. All CT scans are performed using dose optimization technique as appropriate and may include automated exposure control or mA/KV adjustment according to patient size. FINDINGS: No evidence of pulmonary thromboembolism. No acute aortic finding demonstrated. Marked abnormal lymphadenopathy in the right supraclavicular region, right subpectoral location, righ t exit line along the right lateral chest wall all demonstrate significant progression since 04/15/20 21 study. Moderate size pericardial effusion is present appearing similar in size to prior study. Moderate righ t pleural effusion. Multiple bilateral metastatic pulmonary nodules are seen, moderately enlarged. No lytic or blastic bone lesions seen. IMPRESSION: No evidence of pulmonary thromboembolism. The advanced intrathoracic malignant process has moderately progressed since comparative study.
--- NOTE | 2021-07-19 11:50 | RAD REPORT ---
EXAM DESCRIPTION: RAD - Chest Single View - 07/19/2021 7:06 am CLINICAL HISTORY: Lightheaded Chest pain. COMPARISON: Chest Single View dated 07/06/2021; Chest Single View dated 04/23/2021; Chest Single Vie w dated 04/15/2021 FINDINGS: Portable technique limits examination quality. Multiple bilateral pulmonary nodules are again seen in compatible with metastatic disease. Bilateral pleural effusions are seen, moderately progressive on the right with increased opacification of the r ight lung base which could be mass or infiltrate. The heart is mildly to moderately enlarged.
[2021-07-19 13:38] VITALS: TEMP 97.7
[2021-07-19 13:49] VITALS: BP 113/83; O2SAT 95
== END 2021-07-19 13:06 | disposition short-term general hospital (02) ==
LOC: ER 05:35
DX: I31.3 Pericardial effusion (noninflammatory) (principal); I10 Essential (primary) hypertension; F17.210 Nicotine dependence, cigarettes, uncomplicated; Z20.822 Contact with and (suspected) exposure to COVID-19
CPT/HCPCS: 93005; 85025; 80048; 36415; 83735; 85610; 80076; 84484; 83880; 71275; 71045; 99285; U0003; Q9967; J7040; J7030